=== PATIENT | female | born 1985 | race Caucasian/White ===

== ENCOUNTER 2019-06-08 16:59 | Emergency (ER) | payer OTHER ==
[2019-06-08 17:09] VITALS: RESP 18
--- NOTE | 2019-06-08 19:23 | ED ---
Fall HPI - General Source: patient, EMS Mode of arrival: EMS <Nazanin Orantes - Last Filed: 06/08/19 20:11> <Ryann Segovia - Last Filed: 06/11/19 02:56> - General Chief Complaint: Fall Stated Complaint: Headache, Fall, Nausea Time Seen by Provider: 06/08/19 17:21 - History of Present Illness Initial Comments: Patient is a 33-year-old female presenting to the emergency Department with complaints of a headache and neck pain after falling early this morning. Patient states she was returning home from work around midnight and was going up her stairs when she stopped to tell her friend sonido and she fell back down her stairs. Patient is unsure how many stairs she fell down. Patient is also unaware if she lost consciousness. Patient states she does remember getting up from the floor getting something to eat and then laying down. Patient states she woke up this morning around 8:30 feeling okay. Patient then went to work an d started feeling nauseous, vomiting and feeling dizzy. She said the headache was also worsening, so she decided to be seen. Patient denies any fever, chills, blurry vision at this time. Patient denies any abdominal pain. Patient denies any other injuries him her fall. She describes her headache as all over and rates it currently as 7/10. Patient denies taking any medications. No pertinent past medical history. Arrival to ER, vital signs are stable, afebrile. (Nazanin Orantes) - Related Data Home Medications Medication Instructions Recorded Confirmed No Known Home Medications 06/08/19 06/08/19 Allergies Allergy/AdvReac Type Severity Reaction Status Date / Time codeine AdvReac Mild Abdominal Verified 06/08/19 17:22 Pain amoxicillin AdvReac DOES NOT Verified 06/08/19 17:22 WORK Review of Systems ROS Other: All systems not noted in ROS Statement are negative. <Nazanin Orantes - Last Filed: 06/08/19 20:11> ROS Other: All systems not noted in ROS Statement are negative. <Ryann Segovia - Last Filed: 06/11/19 02:56> ROS Statement: Those systems with pertinent positive or pertinent negative responses have been documented in the HPI. Past Medical History Past Medical History: Asthma Additional Past Medical History / Comment(s): heart murmur as a child History of Any Multi-Drug Resistant Organisms: None Reported Past Surgical History: Section, Cholecystectomy Additional Past Surgical History / Comment(s): clamp on liver due to "liver bleed during gall bladder surgery" Past Anesthesia/Blood Transfusion Reactions: Previous Problems w/ Anesthesia Additional Past Anesthesia/Blood Transfusion Reaction / Comment(s): "freaked out when coming out and jumped off stretcher" Past Psychological History: Anxiety, Depression Smoking Status: Current every day smoker Past Alcohol Use History: None Reported Past Drug Use History: None Reported - Past Family History Father Family Medical History: No Reported History <Nazanin Orantes - Last Filed: 06/08/19 20:11> General Exam Limitations: no limitations <Nazanin Orantes - Last Filed: 06/08/19 20:11> - General Exam Comments Initial Comments: GENERAL: Well-appearing, well-nourished and in no acute distress. Patient arrived via EMS, currently in c-collar. HEAD: Atraumatic, normocephalic. EYES: Pupils equal round and reactive to light, extraocular movements intact, sclera anicteric, conjunctiva are normal. ENT: TMs normal, nares patent, oropharynx clear without exudates. Moist mucous membranes. Small bruise on the right side of the chin. NECK: After c-collar was cleared, Normal range of motion- with soreness at end range, supple without lymphadenopathy or JVD. LUNGS: Breath sounds clear to auscultation bilaterally and equal. No wheezes rales or rhonchi. HEART: Regular rate and rhythm without murmurs, rubs or gallops. ABDOMEN: Soft, nontender, normoactive bowel sounds. No guarding, no rebound. No masses appreciated. : Deferred EXTREMITIES: Normal range of motion, no pitting or edema. No clubbing or cyanosis. NEUROLOGICAL: Cranial nerves II through XII grossly intact. Normal speech, normal gait. PSYCH: Normal mood, normal affect. SKIN: Warm, Dry, normal turgor, no rashes or lesions noted. (Nazanin Orantes) Course Vital Signs 06/08/19 06/08/19 06/08/19 17:04 18:33 19:54 Temperature 98.5 F 98 F Pulse Rate 86 74 80 Respiratory 18 18 18 Rate Blood Pressure 144/99 135/92 125/84 O2 Sat by Pulse 100 99 100 Oximetry Medical Decision Making <Paradise Orantesderick Sheriff - Last Filed: 06/08/19 20:11> <Ryann Segovia - Last Filed: 06/11/19 02:56> - Medical Decision Making Patient is a 33-year-old female presenting via EMS after falling down some stairs last night. Patient states she is unaware of LOC. Patient was working today and started developing nausea, headache, dizziness and neck pain. Patient presented with a c-collar on. Parents ER vital signs are stable. CT of the C- spine reveals no acute fractures/dislocations. There is no acute intercranial hemorrhage of the brain. Discussed with patient that her symptoms are likely related to a concussion secondary to the fall. Discussed that these symptoms could last up to 1-2 weeks. Use Tylenol and/or Motrin for pain relief. Work note was given. Patient will follow up with PCP if symptoms persist longer than 1-2 weeks. Strict return parameters were discussed with the patient she verbalized understanding. Patient stable for discharge at this time. Case discussed with Dr. Segovia. (Nazanin Orantes) I was available for consultation in the emergency department. The history and physical exam were done by the midlevel provider. I was consulted for this patient's care. I reviewed the case midlevel provider and based on their presentation of the patient, I agree with the assessment, medical decision making and plan of care as documented. Chart was dictated using [employer] software. Attempts were made to correct any dictation errors however some typographical errors may persist. (Ryann Segovia) Disposition Is patient prescribed a controlled substance at d/c from ED?: No <Nazanin Orantes - Last Filed: 06/08/19 20:11> <Ryann Segovia - Last Filed: 06/11/19 02:56> Clinical Impression: Fall, Concussion Disposition: HOME SELF-CARE Condition: Stable Instructions (If sedation given, give patient instructions): Concussion (ED) Additional Instructions: Please return to the Emergency Department if symptoms worsen or any other concerns. Follow-up with PCP if symptoms persist over 1 week. Referrals: None,Stated [Primary Care Provider] - 1-2 days Franky Tinoco MD [REFERRING] - 1-2 days
[2019-06-08 19:55] VITALS: BP 125/84; PULSE 80; TEMP 98
[2019-06-08] MEDS ORDERED: IBUPROFEN 600 MG TAB PO STA (19:59)
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
== END 2019-06-08 20:16 | disposition home or self-care (01) ==
LOC: EC 16:59
DX: S06.0X9A Concussion with loss of consciousness of unspecified duration, initial encounter (principal); S00.83XA Contusion of other part of head, initial encounter; M54.2 Cervicalgia; F17.200 Nicotine dependence, unspecified, uncomplicated; Z88.0 Allergy status to penicillin; Z88.5 Allergy status to narcotic agent; W10.9XXA Fall (on) (from) unspecified stairs and steps, initial encounter; Y93.89 Activity, other specified
CPT/HCPCS: 70450; 72125; 99284

== ENCOUNTER 2019-10-14 17:13 | Emergency (ER) | payer OTHER ==
[2019-10-14 18:41] LABS: Appearance,Urine Clear (Clear); Bacteria,Urine Rare /hpf; Bilirubin,Urine Negative (Negative); Blood,Urine Moderate (Negative); Color,Urine Light Yellow; Glucose,Urine (UA) Negative (Negative); Ketones,Urine Negative (Negative); Leukocyte Esterase,Urine Negative (Negative); Mucus,Urine Rare /hpf; Nitrite,Urine Negative (Negative); Protein,Urine Negative (Negative); RBC,Urine 2 /hpf (0-5); Specific Gravity,Urine 1.006 (1.001-1.035); Squamous Epithelial Cell,Urine 2 /hpf (0-4); Urobilinogen,Urine <2.0 mg/dL (<2.0); WBC,Urine <1 /hpf (0-5)
[2019-10-14] MEDS ORDERED: diphenhydrAMINE 25 MG CAP PO STA (18:47)
[2019-10-14] MEDS ORDERED: DEXAMETHASONE 4 MG TAB PO STA (18:47)
[2019-10-14] MEDS ORDERED: Acetaminophen-Codeine 300-30mg TAB PO STA (18:47)
[2019-10-14] MEDS ORDERED: KETOROLAC 60 MG/2 ML VIAL IM STA (18:47)
[2019-10-14] MEDS ORDERED: PROCHLORPERAZINE 5 MG TAB PO STA (18:47)
[2019-10-14] MEDS ORDERED: ACETAMINOPHEN TAB 325 MG TAB PO STA (18:47)
--- NOTE | 2019-10-14 18:49 | ED ---
Back Pain HPI - General Chief Complaint: Back Pain/Injury Stated Complaint: back pain, headache Time Seen by Provider: 10/14/19 18:10 Source: patient, RN notes reviewed, old records reviewed Limitations: no limitations - History of Present Illness Initial Comments: Is a 33-year-old female here for evaluation of multiple complaints neck pain and back pain headache. Sensation imbalance of frustrated infection as well as urinary tract infections history of antibiotic. History of subsidence of substance abuse and depression does have pain for depression with denying significant depression currently denying drug or alcohol abuse denying suicidal thoughts. He is taking Motrin at home which does help with her pain. Denying any trauma to both her head or back. No loss of bowel or bladder no neurological complaints. Patient states she doesn't here for some relief from symptoms MD Complaint: back pain -: days(s) Similar Symptoms Previously: Yes Place: home Radiation: buttocks, left leg, right leg Severity: mild Severity scale (1-10): 3 Quality: sharp, aching Consistency: intermittent Improves With: none Worsens With: movement, walking Associated Symptoms: denies other symptoms - Related Data Previous Rx's Medication Instructions Recorded Cetirizine HCl/Pseudoephedrine 1 each PO BID #20 tab.er.12h 10/14/19 [Zyrtec-D Tablet] Clarithromycin [Biaxin] 500 mg PO Q12HR #20 tablet 10/14/19 Allergies Allergy/AdvReac Type Severity Reaction Status Date / Time codeine AdvReac Mild Abdominal Verified 06/08/19 17:22 Pain amoxicillin AdvReac DOES NOT Verified 06/08/19 17:22 WORK Review of Systems ROS Statement: Those systems with pertinent positive or pertinent negative responses have been documented in the HPI. ROS Other: All systems not noted in ROS Statement are negative. Past Medical History Past Medical History: Asthma Additional Past Medical History / Comment(s): heart murmur as a child History of Any Multi-Drug Resistant Organisms: None Reported Past Surgical History: Section, Cholecystectomy Additional Past Surgical History / Comment(s): clamp on liver due to "liver bleed during gall bladder surgery" Past Anesthesia/Blood Transfusion Reactions: Previous Problems w/ Anesthesia Additional Past Anesthesia/Blood Transfusion Reaction / Comment(s): "freaked out when coming out and jumped off stretcher" Past Psychological History: Anxiety, Depression Smoking Status: Current every day smoker Past Alcohol Use History: None Reported Past Drug Use History: None Reported - Past Family History Father Family Medical History: No Reported History General Exam Limitations: no limitations General appearance: alert, in no apparent distress Head exam: Present: atraumatic, normocephalic, normal inspection Eye exam: Present: normal appearance, PERRL, EOMI. Absent: scleral icterus, conjunctival injection, periorbital swelling ENT exam: Present: normal exam, mucous membranes moist Neck exam: Present: normal inspection. Absent: tenderness, meningismus, lymphadenopathy Respiratory exam: Present: normal lung sounds bilaterally. Absent: respiratory distress, wheezes, rales, rhonchi, stridor Cardiovascular Exam: Present: regular rate, normal rhythm, normal heart sounds. Absent: systolic murmur, diastolic murmur, rubs, gallop, clicks GI/Abdominal exam: Present: soft, normal bowel sounds. Absent: distended, tenderness, guarding, rebound, rigid Extremities exam: Present: normal inspection, full ROM, normal capillary refill. Absent: tenderness, pedal edema, joint swelling, calf tenderness Back exam: Present: normal inspection Neurological exam: Present: alert, oriented X3, CN II-XII intact Psychiatric exam: Present: normal affect, normal mood Skin exam: Present: warm, dry, intact, normal color. Absent: rash Course Vital Signs 10/14/19 10/14/19 17:40 19:46 Temperature 98.3 F 98 F Pulse Rate 75 77 Respiratory 16 18 Rate Blood Pressure 136/89 133/73 O2 Sat by Pulse 100 97 Oximetry Medical Decision Making - Medical Decision Making 32-year-old female here for evaluation of headache and back pain. Urine is negative for acute disease. Patient symptoms are managed here in the ER patient's able to be discharged home with follow-up with primary care this week - Lab Data Lab Results 10/14/19 10/14/19 10/14/19 Range/Units 18:30 18:30 19:02 Urine Color Light Yellow Urine Appearance Clear (Clear) Urine pH 6.0 (5.0-8.0) Ur Specific [place] 1.006 (1.001-1.035) Urine Protein Negative (Negative) Urine Glucose (UA) Negative (Negative) Urine Ketones Negative (Negative) Urine Blood Moderate H (Negative) Urine Nitrite Negative (Negative) Urine Bilirubin Negative (Negative) Urine Urobilinogen <2.0 (<2.0) mg/dL Ur Leukocyte Esterase Negative (Negative) Urine RBC 2 (0-5) /hpf Urine WBC <1 (0-5) /hpf Ur Squamous Epith Cells 2 (0-4) /hpf Urine Bacteria Rare H (None) /hpf Urine Mucus Rare H (None) /hpf Urine HCG, Qual Not Detected (Not Detectd) Influenza Type A RNA Not Detected (Not Detectd) Influenza Type B (PCR) Not Detected (Not Detectd) Disposition Clinical Impression: Migraine, Viral syndrome Disposition: HOME SELF-CARE Condition: Good Instructions (If sedation given, give patient instructions): Migraine Headache (ED), Acute Low Back Pain (ED) Prescriptions: Clarithromycin [Biaxin] 500 mg PO Q12HR #20 tablet Cetirizine HCl/Pseudoephedrine [Zyrtec-D Tablet] 1 each PO BID #20 tab.er.12h Is patient prescribed a controlled substance at d/c from ED?: No Referrals: Jeffery Godfrey Jr, [Primary Care Provider] - 1-2 days
[2019-10-14 19:47] VITALS: BP 133/73; PULSE 77; RESP 18; TEMP 98
== END 2019-10-14 19:47 | disposition home or self-care (01) ==
LOC: EC 17:13
DX: B34.9 Viral infection, unspecified (principal); G43.909 Migraine, unspecified, not intractable, without status migrainosus; F17.200 Nicotine dependence, unspecified, uncomplicated; Z88.0 Allergy status to penicillin; Z88.5 Allergy status to narcotic agent
CPT/HCPCS: 81001; 81025; 87502; 99284; 96372; S0183; J8540; J1885

== ENCOUNTER 2019-11-02 18:14 | Emergency (ER) | payer OTHER ==
[2019-11-02 18:25] VITALS: RESP 18; TEMP 99.1
[2019-11-02] MEDS ORDERED: KETOROLAC 30 MG/ML 1 ML VIAL IM STA (18:33)
--- NOTE | 2019-11-02 19:11 | XR ---
EXAMINATION TYPE: XR Hip RT and AP Pelvis DATE OF EXAM: 11/02/2019 COMPARISON: NONE HISTORY: Pain TECHNIQUE: 3 views FINDINGS: Pelvic ring is intact. Proximal right femur and hip joint are intact. Sacroiliac joints mickey ear normal. There is no sign of hip dysplasia. IMPRESSION: Normal pelvis and right hip exam.
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
[2019-11-02 19:50] VITALS: BP 138/72; PULSE 82
== END 2019-11-02 19:50 | disposition home or self-care (01) ==
LOC: EC 18:14
DX: M25.551 Pain in right hip (principal); F17.200 Nicotine dependence, unspecified, uncomplicated; Z88.0 Allergy status to penicillin; Z88.5 Allergy status to narcotic agent
CPT/HCPCS: 73502; 99283; 96372; J1885

== ENCOUNTER 2019-11-25 16:49 | Emergency (ER) | payer OTHER ==
[2019-11-25 16:59] VITALS: RESP 19; TEMP 99.4
[2019-11-25] MEDS ORDERED: SODIUM CHLORIDE 0.9% 1,000 ML IV STA (17:26)
--- NOTE | 2019-11-25 17:40 | ED ---
General Adult HPI - General Chief complaint: Chest Pain Stated complaint: chest pain Time Seen by Provider: 11/25/19 17:03 Source: EMS Mode of arrival: EMS Limitations: no limitations - History of Present Illness Initial comments: 34-year-old female patient presents to the emergency department today for evaluation of chest pain. Patient states he was having sharp stabbing pain to the mid left chest at the sternal border. Patient states this lasted for about 20 minutes. Patient states the pain radiated straight through to her back. States that she did feel short of breath, dizzy, and nauseous with this. Patient states the pain is mostly resolved however she can still feel it when she takes a deep breath. She states pain started while she was at work. 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 Denies any strenuous work. Patient denies any significant past medical history however states that she is a previous IV drug user. Patient states she's been clean for 67 days. She states that she has been having hot and cold chills. States she has been developing small abscesses over her body. Patient denies any recent rash, abdominal pain, vomiting, diarrhea, constipation, back pain, numbness, tingling, hematuria, dysuria, urinary urgency, urinary frequency, headache, visual changes, or any other complaints. - Related Data Previous Rx's Medication Instructions Recorded Cetirizine HCl/Pseudoephedrine 1 each PO BID #20 tab.er.12h 10/14/19 [Zyrtec-D Tablet] Clarithromycin [Biaxin] 500 mg PO Q12HR #20 tablet 10/14/19 Allergies Allergy/AdvReac Type Severity Reaction Status Date / Time codeine AdvReac Mild Abdominal Verified 06/08/19 17:22 Pain amoxicillin AdvReac DOES NOT Verified 06/08/19 17:22 WORK Review of Systems ROS Statement: Those systems with pertinent positive or pertinent negative responses have been documented in the HPI. ROS Other: All systems not noted in ROS Statement are negative. Past Medical History Past Medical History: Asthma Additional Past Medical History / Comment(s): heart murmur as a child History of Any Multi-Drug Resistant Organisms: None Reported Past Surgical History: Section, Cholecystectomy Additional Past Surgical History / Comment(s): clamp on liver due to "liver bleed during gall bladder surgery" Past Anesthesia/Blood Transfusion Reactions: Previous Problems w/ Anesthesia Additional Past Anesthesia/Blood Transfusion Reaction / Comment(s): "freaked out when coming out and jumped off stretcher" Past Psychological History: Anxiety, Depression Smoking Status: Current every day smoker Past Alcohol Use History: None Reported Past Drug Use History: None Reported - Past Family History Father Family Medical History: No Reported History General Exam Limitations: no limitations General appearance: alert, in no apparent distress, other (This is a well- developed, well-nourished adult female patient in no acute distress. Vital signs upon presentation are temperature 99.4F, pulse 64, respirations 19, blood pressure 134/84, pulse ox 100% on room air.) Eye exam: Present: normal appearance, PERRL, EOMI. Absent: scleral icterus, conjunctival injection, periorbital swelling ENT exam: Present: normal exam, normal oropharynx, mucous membranes moist Respiratory exam: Present: normal lung sounds bilaterally. Absent: respiratory distress, wheezes, rales, rhonchi, stridor Cardiovascular Exam: Present: regular rate, normal rhythm, normal heart sounds. Absent: systolic murmur, diastolic murmur, rubs, gallop, clicks GI/Abdominal exam: Present: soft, normal bowel sounds. Absent: distended, tenderness, guarding, rebound, rigid Neurological exam: Present: alert, oriented X3, CN II-XII intact Psychiatric exam: Present: normal affect, normal mood Skin exam: Present: warm, dry, intact, normal color. Absent: rash Course Vital Signs 11/25/19 11/25/19 16:52 18:57 Temperature 99.4 F Pulse Rate 64 58 L Respiratory 19 19 Rate Blood Pressure 134/84 127/82 O2 Sat by Pulse 100 100 Oximetry Medical Decision Making - Medical Decision Making 34-year-old female patient with past medical history significant for IV drug use presents to the emergency department today for evaluation of the 20 minute episode of sharp substernal chest pain radiating through to her back. Physical examination reveals clear equal lung sounds. Heart sounds are normal. Abdomen soft and nontender. Labs reviewed and are unremarkable. ESR and CRP are negative. White blood cell count is just mildly elevated. Chest x-ray shows no acute cardiopulmonary process. EKG showed normal sinus rhythm. Patient symptoms did resolve upon arrival. I did discuss findings and results with the patient. We did discuss chest wall pain and pleuritis as a possible cause for her symptoms. To be discharged pop with her primary care physician for recheck in 1-2 days. Return parameters were discussed in detail. She verbalizes understanding and agrees this plan. - Lab Data Result diagrams: 11/25/19 17:10 11/25/19 17:10 Lab Results 11/25/19 11/25/19 11/25/19 Range/Units 17:10 17:10 17:10 WBC 10.8 H (3.8-10.6) k/uL RBC 4.68 (3.80-5.40) m/uL Hgb 13.1 (11.4-16.0) gm/dL Hct 41.6 (34.0-46.0) % MCV 88.8 (80.0-100.0) fL MCH 28.0 (25.0-35.0) pg MCHC 31.5 (31.0-37.0) g/dL RDW 14.9 (11.5-15.5) % Plt Count 345 (150-450) k/uL Neutrophils % 59 % Lymphocytes % 30 % Monocytes % 6 % Eosinophils % 2 % Basophils % 1 % Neutrophils # 6.4 (1.3-7.7) k/uL Lymphocytes # 3.3 (1.0-4.8) k/uL Monocytes # 0.6 (0-1.0) k/uL Eosinophils # 0.2 (0-0.7) k/uL Basophils # 0.1 (0-0.2) k/uL ESR 7 (0-20) mm/hr PT 10.1 (9.0-12.0) sec INR 1.0 (<1.2) APTT 25.1 (22.0-30.0) sec D-Dimer 0.29 (<0.60) mg/L FEU Sodium 140 (137-145) mmol/L Potassium 4.0 (3.5-5.1) mmol/L Chloride 108 H (98-107) mmol/L Carbon Dioxide 23 (22-30) mmol/L Anion Gap 9 mmol/L BUN 5 L (7-17) mg/dL Creatinine 0.58 (0.52-1.04) mg/dL Est GFR (CKD-EPI)AfAm >90 (>60 ml/min/1.73 sqM) Est GFR (CKD-EPI)NonAf >90 (>60 ml/min/1.73 sqM) Glucose 67 L (74-99) mg/dL Calcium 9.8 (8.4-10.2) mg/dL Magnesium 1.8 (1.6-2.3) mg/dL Total Bilirubin 0.3 (0.2-1.3) mg/dL AST 30 (14-36) U/L ALT 18 (4-34) U/L Alkaline Phosphatase 78 (38-126) U/L Troponin I (0.000-0.034) ng/mL C-Reactive Protein <5.0 (<10.0) mg/L Total Protein 7.6 (6.3-8.2) g/dL Albumin 4.6 (3.5-5.0) g/dL Urine Color Urine Appearance (Clear) Urine pH (5.0-8.0) Ur Specific [place] (1.001-1.035) Urine Protein (Negative) Urine Glucose (UA) (Negative) Urine Ketones (Negative) Urine Blood (Negative) Urine Nitrite (Negative) Urine Bilirubin (Negative) Urine Urobilinogen (<2.0) mg/dL Ur Leukocyte Esterase (Negative) 11/25/19 11/25/19 Range/Units 17:10 17:10 WBC (3.8-10.6) k/uL RBC (3.80-5.40) m/uL Hgb (11.4-16.0) gm/dL Hct (34.0-46.0) % MCV (80.0-100.0) fL MCH (25.0-35.0) pg MCHC (31.0-37.0) g/dL RDW (11.5-15.5) % Plt Count (150-450) k/uL Neutrophils % % Lymphocytes % % Monocytes % % Eosinophils % % Basophils % % Neutrophils # (1.3-7.7) k/uL Lymphocytes # (1.0-4.8) k/uL Monocytes # (0-1.0) k/uL Eosinophils # (0-0.7) k/uL Basophils # (0-0.2) k/uL ESR (0-20) mm/hr PT (9.0-12.0) sec INR (<1.2) APTT (22.0-30.0) sec D-Dimer (<0.60) mg/L FEU Sodium (137-145) mmol/L Potassium (3.5-5.1) mmol/L Chloride (98-107) mmol/L Carbon Dioxide (22-30) mmol/L Anion Gap mmol/L BUN (7-17) mg/dL Creatinine (0.52-1.04) mg/dL Est GFR (CKD-EPI)AfAm (>60 ml/min/1.73 sqM) Est GFR (CKD-EPI)NonAf (>60 ml/min/1.73 sqM) Glucose (74-99) mg/dL Calcium (8.4-10.2) mg/dL Magnesium (1.6-2.3) mg/dL Total Bilirubin (0.2-1.3) mg/dL AST (14-36) U/L ALT (4-34) U/L Alkaline Phosphatase (38-126) U/L Troponin I <0.012 (0.000-0.034) ng/mL C-Reactive Protein (<10.0) mg/L Total Protein (6.3-8.2) g/dL Albumin (3.5-5.0) g/dL Urine Color Yellow Urine Appearance Clear (Clear) Urine pH 6.0 (5.0-8.0) Ur Specific [place] 1.005 (1.001-1.035) Urine Protein Negative (Negative) Urine Glucose (UA) Negative (Negative) Urine Ketones Negative (Negative) Urine Blood Negative (Negative) Urine Nitrite Negative (Negative) Urine Bilirubin Negative (Negative) Urine Urobilinogen 0.2 (<2.0) mg/dL Ur Leukocyte Esterase Negative (Negative) - Radiology Data Radiology results: report reviewed, image reviewed Two-view x-ray of the chest is obtained. Report is reviewed in its entirety. Impression by Dr. Jimenez shows normal chest. There is clearing of the atelectasis at the right upper lobe compared to last exam. Disposition Clinical Impression: Chest wall pain Disposition: HOME SELF-CARE Condition: Good Instructions (If sedation given, give patient instructions): Chest Wall Pain (ED) Additional Instructions: Increase fluids. Rest. Take Tylenol Motrin for pain control. Follow-up to primary care physician for recheck in 1-2 days. Return to the emergency department immediately for any new, worsening, or concerning symptoms. Is patient prescribed a controlled substance at d/c from ED?: No Referrals: Jeffery Godfrey Jr, [Primary Care Provider] - 1-2 days Time of Disposition: 19:58
[2019-11-25 18:15] LABS: ALT 18 U/L (4-34); AST 30 U/L (14-36); African American GFR (CKD) >90 (>60 ml/min/1.73 sqM); Albumin 4.6 g/dL (3.5-5.0); Alkaline Phosphatase 78 U/L (38-126); Anion Gap 9 mmol/L; Blood Urea Nitrogen 5 mg/dL (7-17); C Reactive Protein <5.0 mg/L (<10.0); Calcium 9.8 mg/dL (8.4-10.2); Carbon Dioxide 23 mmol/L (22-30); Chloride 108 mmol/L (98-107); Glucose 67 mg/dL (74-99); Magnesium 1.8 mg/dL (1.6-2.3); Non-African American GFR(CKD) >90 (>60 ml/min/1.73 sqM); Sodium 140 mmol/L (137-145); Total Bilirubin 0.3 mg/dL (0.2-1.3); Total Protein 7.6 g/dL (6.3-8.2)
--- NOTE | 2019-11-25 18:17 | XR ---
EXAMINATION TYPE: XR chest 2V DATE OF EXAM: 11/25/2019 COMPARISON: 01/02/2016 HISTORY: Chest pain TECHNIQUE: FINDINGS: Heart and mediastinum are normal. Lungs are clear. Diaphragm is normal. Bony thorax appears normal. IMPRESSION: Normal chest. There is clearing of the atelectasis in the right upper lobe compared to [facility] exam.
[2019-11-25 18:30] LABS: Basophils # (A) 0.1 k/uL (0-0.2); Basophils % (A) 1 %; Eosinophils # (A) 0.2 k/uL (0-0.7); Eosinophils % (A) 2 %; HCT 41.6 % (34.0-46.0); HGB 13.1 gm/dL (11.4-16.0); Lymphocytes # (A) 3.3 k/uL (1.0-4.8); Lymphocytes % (A) 30 %; MCHC 31.5 g/dL (31.0-37.0); MCV 88.8 fL (80.0-100.0); Mean Platelet Volume 7.9; Monocytes # (A) 0.6 k/uL (0-1.0); Monocytes % (A) 6 %; Neutrophils # (A) 6.4 k/uL (1.3-7.7); Neutrophils % (A) 59 %; Platelet Count 345 k/uL (150-450); RBC 4.68 m/uL (3.80-5.40); RDW 14.9 % (11.5-15.5); WBC 10.8 k/uL (3.8-10.6)
[2019-11-25 18:35] LABS: Appearance,Urine Clear (Clear); Bilirubin,Urine Negative (Negative); Color,Urine Yellow; Glucose,Urine (UA) Negative (Negative); Ketones,Urine Negative (Negative); Protein,Urine Negative (Negative); Specific Gravity,Urine 1.005 (1.001-1.035)
[2019-11-25 18:36] LABS: Blood,Urine Negative (Negative); Leukocyte Esterase,Urine Negative (Negative); Nitrite,Urine Negative (Negative); Urobilinogen,Urine 0.2 mg/dL (<2.0)
[2019-11-25 18:40] LABS: D-Dimer 0.29 mg/L FEU (<0.60); Partial Thromboplastin Time 25.1 sec (22.0-30.0); Prothrombin Time 10.1 sec (9.0-12.0)
[2019-11-25 18:59] VITALS: BP 127/82; PULSE 58
[2019-11-25 19:40] LABS: Erythrocyte Sedimentation Rate 7 mm/hr (0-20)
== END 2019-11-25 20:26 | disposition home or self-care (01) ==
LOC: EC 16:49
DX: R07.89 Other chest pain (principal); R07.2 Precordial pain; D72.829 Elevated white blood cell count, unspecified; F17.200 Nicotine dependence, unspecified, uncomplicated; Z88.5 Allergy status to narcotic agent; Z88.0 Allergy status to penicillin; Z86.59 Personal history of other mental and behavioral disorders
CPT/HCPCS: 36415; 71046; 80053; 81003; 83735; 84484; 85025; 85379; 85610; 85652; 85730; 86140; 93005; 96360; 96361; 99285

== ENCOUNTER 2021-01-31 18:50 | Emergency (ER) | payer OTHER ==
[2021-01-31 18:57] VITALS: TEMP 98.2
--- NOTE | 2021-01-31 19:14 | ED ---
URI HPI - General Chief Complaint: Upper Respiratory Infection Stated Complaint: SOB/sore throat Time Seen by Provider: 01/31/21 19:00 Source: patient, RN notes reviewed Mode of arrival: ambulatory Limitations: no limitations - History of Present Illness Initial Comments: She is a 35-year-old female presents to emergency by complaining of upper respiratory tract symptoms for approximately 2 weeks. She notes that she's had a continuous cough that results in some chest tightness and pain. States that her boss recently got 2 weeks off due to Covid pneumonia. She notes that she's been try to avoid come in the hospital inferior of everything was going on during the pinnae. She states that she has had orthopnea which has proper supple to sleep at night. She stated the cough was dry and nonproductive constant throughout the day. She was well-appearing, well-hydrated while sitting in bed in exam interview. She did have a raspy voice due to irritated throat. She denied any headache nausea vomiting diarrhea constipation fever fatigue chills loss of sense of smell or taste. - Related Data Previous Rx's Medication Instructions Recorded Cetirizine HCl/Pseudoephedrine 1 each PO BID #20 tab.er.12h 10/14/19 [Zyrtec-D Tablet] Clarithromycin [Biaxin] 500 mg PO Q12HR #20 tablet 10/14/19 Azithromycin [Zithromax Z-pack (6 0 mg PO DIRECTED 5 Days #6 tab 01/31/21 tabs)] Allergies Allergy/AdvReac Type Severity Reaction Status Date / Time codeine AdvReac Mild Abdominal Verified 01/31/21 18:55 Pain amoxicillin AdvReac DOES NOT Verified 01/31/21 18:55 WORK Review of Systems ROS Statement: Those systems with pertinent positive or pertinent negative responses have been documented in the HPI. ROS Other: All systems not noted in ROS Statement are negative. Past Medical History Past Medical History: Asthma Additional Past Medical History / Comment(s): heart murmur as a child History of Any Multi-Drug Resistant Organisms: None Reported Past Surgical History: Section, Cholecystectomy Additional Past Surgical History / Comment(s): clamp on liver due to "liver bleed during gall bladder surgery" Past Anesthesia/Blood Transfusion Reactions: Previous Problems w/ Anesthesia Additional Past Anesthesia/Blood Transfusion Reaction / Comment(s): "freaked out when coming out and jumped off stretcher" Past Psychological History: Anxiety, Depression Smoking Status: Current every day smoker Past Alcohol Use History: None Reported Past Drug Use History: None Reported - Past Family History Father Family Medical History: No Reported History General Exam Limitations: no limitations General appearance: alert, in no apparent distress Head exam: Present: atraumatic, normocephalic, normal inspection Eye exam: Present: normal appearance, PERRL, EOMI. Absent: scleral icterus, conjunctival injection, periorbital swelling ENT exam: Present: normal exam, mucous membranes moist. Absent: normal oropharynx (Erythematous nonswollen) Neck exam: Present: normal inspection. Absent: tenderness, meningismus, lymphadenopathy Respiratory exam: Present: normal lung sounds bilaterally. Absent: respiratory distress, wheezes, rales, rhonchi, stridor Cardiovascular Exam: Present: regular rate, normal rhythm, normal heart sounds. Absent: systolic murmur, diastolic murmur, rubs, gallop, clicks GI/Abdominal exam: Present: soft, normal bowel sounds. Absent: distended, tenderness, guarding, rebound, rigid Extremities exam: Present: normal inspection, full ROM, normal capillary refill. Absent: tenderness, pedal edema, joint swelling, calf tenderness Neurological exam: Present: alert, oriented X3, CN II-XII intact Psychiatric exam: Present: normal affect, normal mood Skin exam: Present: warm, dry, intact, normal color. Absent: rash Course Vital Signs 01/31/21 01/31/21 18:53 19:43 Temperature 98.2 F Pulse Rate 87 81 Respiratory 16 18 Rate Blood Pressure 150/70 O2 Sat by Pulse 100 98 Oximetry Medical Decision Making - Medical Decision Making 35-year-old female with upper respiratory tract symptoms for 2 weeks. Labs, EKG, chest x-ray, Covid test ordered. Covid test negative Chest x-ray negative for any acute cardiopulmonary process. Case discussed with Dr. Mendez, patient can discharge home. - Lab Data Result diagrams: 01/31/21 19:22 01/31/21 19:22 Lab Results 01/31/21 01/31/21 01/31/21 Range/Units 19:22 19:22 19:22 WBC 15.0 H (3.8-10.6) k/uL RBC 4.66 (3.80-5.40) m/uL Hgb 13.0 (11.4-16.0) gm/dL Hct 40.2 (34.0-46.0) % MCV 86.3 (80.0-100.0) fL MCH 28.0 (25.0-35.0) pg MCHC 32.5 (31.0-37.0) g/dL RDW 14.2 (11.5-15.5) % Plt Count 377 (150-450) k/uL MPV 7.2 Neutrophils % 62 % Lymphocytes % 27 % Monocytes % 6 % Eosinophils % 3 % Basophils % 1 % Neutrophils # 9.3 H (1.3-7.7) k/uL Lymphocytes # 4.0 (1.0-4.8) k/uL Monocytes # 0.9 (0-1.0) k/uL Eosinophils # 0.5 (0-0.7) k/uL Basophils # 0.1 (0-0.2) k/uL Sodium 137 (137-145) mmol/L Potassium 4.5 (3.5-5.1) mmol/L Chloride 107 (98-107) mmol/L Carbon Dioxide 21 L (22-30) mmol/L Anion Gap 9 mmol/L BUN 11 (7-17) mg/dL Creatinine 0.55 (0.52-1.04) mg/dL Est GFR (CKD-EPI)AfAm >90 (>60 ml/min/1.73 sqM) Est GFR (CKD-EPI)NonAf >90 (>60 ml/min/1.73 sqM) Glucose 81 (74-99) mg/dL Calcium 9.4 (8.4-10.2) mg/dL Urine Color Light Yellow Urine Appearance Clear (Clear) Urine pH 5.5 (5.0-8.0) Ur Specific [place] 1.006 (1.001-1.035) Urine Protein Negative (Negative) Urine Glucose (UA) Negative (Negative) Urine Ketones Negative (Negative) Urine Blood Negative (Negative) Urine Nitrite Negative (Negative) Urine Bilirubin Negative (Negative) Urine Urobilinogen <2.0 (<2.0) mg/dL Ur Leukocyte Esterase Negative (Negative) Coronavirus (PCR) (Not Detectd) 01/31/21 Range/Units 19:22 WBC (3.8-10.6) k/uL RBC (3.80-5.40) m/uL Hgb (11.4-16.0) gm/dL Hct (34.0-46.0) % MCV (80.0-100.0) fL MCH (25.0-35.0) pg MCHC (31.0-37.0) g/dL RDW (11.5-15.5) % Plt Count (150-450) k/uL MPV Neutrophils % % Lymphocytes % % Monocytes % % Eosinophils % % Basophils % % Neutrophils # (1.3-7.7) k/uL Lymphocytes # (1.0-4.8) k/uL Monocytes # (0-1.0) k/uL Eosinophils # (0-0.7) k/uL Basophils # (0-0.2) k/uL Sodium (137-145) mmol/L Potassium (3.5-5.1) mmol/L Chloride (98-107) mmol/L Carbon Dioxide (22-30) mmol/L Anion Gap mmol/L BUN (7-17) mg/dL Creatinine (0.52-1.04) mg/dL Est GFR (CKD-EPI)AfAm (>60 ml/min/1.73 sqM) Est GFR (CKD-EPI)NonAf (>60 ml/min/1.73 sqM) Glucose (74-99) mg/dL Calcium (8.4-10.2) mg/dL Urine Color Urine Appearance (Clear) Urine pH (5.0-8.0) Ur Specific [place] (1.001-1.035) Urine Protein (Negative) Urine Glucose (UA) (Negative) Urine Ketones (Negative) Urine Blood (Negative) Urine Nitrite (Negative) Urine Bilirubin (Negative) Urine Urobilinogen (<2.0) mg/dL Ur Leukocyte Esterase (Negative) Coronavirus (PCR) Not Detected (Not Detectd) - EKG Data -: EKG Interpreted by Me EKG shows normal: sinus rhythm Rate: normal EKG Comments: Ventricular rate 86 bpm, IA interval 142 ms, QRS duration 80 ms, QT/QTC 346/414 ms, PRT axes of the 8/53/6. Line normal sinus rhythm, normal ECG. - Radiology Data Radiology results: report reviewed, image reviewed Chest x-ray: Normal chest. No change. Disposition Clinical Impression: Upper respiratory tract infection Disposition: HOME SELF-CARE Condition: Stable Instructions (If sedation given, give patient instructions): Upper Respiratory Infection (ED) Additional Instructions: Please return to the Emergency Department if symptoms worsen or any other concerns. Take Motrin for inflammation. Take [id number] cough syrup for cough. Take Z-Giuseppe as directed on the package. Is patient prescribed a controlled substance at d/c from ED?: No Referrals: Jeffery Godfrey Jr, [Primary Care Provider] - 1-2 days Time of Disposition: 20:18
[2021-01-31 19:38] LABS: Appearance,Urine Clear (Clear); Basophils # (A) 0.1 k/uL (0-0.2); Basophils % (A) 1 %; Bilirubin,Urine Negative (Negative); Blood,Urine Negative (Negative); Color,Urine Light Yellow; Eosinophils # (A) 0.5 k/uL (0-0.7); Eosinophils % (A) 3 %; Glucose,Urine (UA) Negative (Negative); HCT 40.2 % (34.0-46.0); Ketones,Urine Negative (Negative); Leukocyte Esterase,Urine Negative (Negative); Lymphocytes % (A) 27 %; MCHC 32.5 g/dL (31.0-37.0); MCV 86.3 fL (80.0-100.0); Mean Platelet Volume 7.2; Monocytes # (A) 0.9 k/uL (0-1.0); Monocytes % (A) 6 %; Neutrophils # (A) 9.3 k/uL (1.3-7.7); Neutrophils % (A) 62 %; Nitrite,Urine Negative (Negative); PH, Urine 5.5 (5.0-8.0); Platelet Count 377 k/uL (150-450); Protein,Urine Negative (Negative); RBC 4.66 m/uL (3.80-5.40); RDW 14.2 % (11.5-15.5); Specific Gravity,Urine 1.006 (1.001-1.035); Urobilinogen,Urine <2.0 mg/dL (<2.0)
--- NOTE | 2021-01-31 19:45 | XR ---
EXAMINATION TYPE: XR chest 1V portable DATE OF EXAM: 01/31/2021 COMPARISON: 11/25/2019 HISTORY: Chest pain TECHNIQUE: FINDINGS: Heart and mediastinum are normal. Lungs are clear. Diaphragm is normal. Bony thorax appears intact. IMPRESSION: Normal chest. No change.
[2021-01-31 19:49] VITALS: RESP 18
[2021-01-31 19:57] LABS: African American GFR (CKD) >90 (>60 ml/min/1.73 sqM); Anion Gap 9 mmol/L; Blood Urea Nitrogen 11 mg/dL (7-17); Carbon Dioxide 21 mmol/L (22-30); Chloride 107 mmol/L (98-107); Glucose 81 mg/dL (74-99); Sodium 137 mmol/L (137-145)
[2021-01-31 19:58] LABS: Calcium 9.4 mg/dL (8.4-10.2); Non-African American GFR(CKD) >90 (>60 ml/min/1.73 sqM)
[2021-01-31 19:59] LABS: Potassium 4.5 mmol/L (3.5-5.1)
[2021-01-31 20:34] VITALS: BP 136/74; PULSE 77
== END 2021-01-31 20:34 | disposition home or self-care (01) ==
LOC: EC 18:50
DX: J06.9 Acute upper respiratory infection, unspecified (principal); J45.909 Unspecified asthma, uncomplicated; F17.200 Nicotine dependence, unspecified, uncomplicated; Z88.0 Allergy status to penicillin; Z88.5 Allergy status to narcotic agent
CPT/HCPCS: 36415; 71045; 80048; 81003; 85025; 87635; 93005; 99285

== ENCOUNTER 2021-05-23 15:12 | Emergency (ER) | payer OTHER ==
[2021-05-23] MEDS ORDERED: predniSONE 50 MG TAB PO STA (15:37)
[2021-05-23] MEDS ORDERED: ALBUTEROL HFA INHALER INHALATION STA (15:38)
--- NOTE | 2021-05-23 15:43 | ED ---
General Adult HPI - General Chief complaint: Upper Respiratory Infection Stated complaint: SMILEY,Cough,headache Time Seen by Provider: 05/23/21 15:30 Source: patient, RN notes reviewed, old records reviewed Mode of arrival: ambulatory Limitations: no limitations - History of Present Illness Initial comments: Patient is a 35-year-old female with past medical history remarkable for asthma who presents emergency Department complaining of a two-day history of worsening difficulty breathing. She describes it as a wheezing sensation with an intermittently productive cough of yellow mucus. She states that she does have a history of asthma but has been without an inhaler at home. She attempted use a family member's breathing inhaler without much improvement. She is uncertain what typically causes asthma flares, as she typically rarely uses her inhaler. 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 She denies receiving vaccination. She denies any chest pain, abdominal pain, nausea, vomiting. Denies any headaches, fevers, chills, cough. Denies any sore throat. Does endorse mild rhinorrhea. Denies any ear fullness or pain. Denies any urinary or vaginal complaints at this time. She otherwise has no acute complaints. - Related Data Previous Rx's Medication Instructions Recorded Albuterol Inhaler [Ventolin Hfa 2 puff INHALATION RT-TID #1 inhaler 05/23/21 Inhaler] Azithromycin [Zithromax] 250 mg PO DAILY 4 Days #4 tab 05/23/21 predniSONE [Deltasone] 40 mg PO DAILY 5 Days #10 tab 05/23/21 Allergies Allergy/AdvReac Type Severity Reaction Status Date / Time codeine AdvReac Mild Abdominal Verified 05/23/21 16:19 Pain amoxicillin AdvReac DOES NOT Verified 05/23/21 16:19 WORK Review of Systems ROS Statement: Those systems with pertinent positive or pertinent negative responses have been documented in the HPI. Review of Systems: CONST: Denies fever EYES: Denies blurry vision ENT: Endorses nasal congestion C/V: Denies Chest pain RESP: Endorses shortness of breath GI: Denies abdominal pain : Denies dysuria SKIN: Denies rash. MSK: Denies joint pain. NEURO: Denies headache ROS Other: All systems not noted in ROS Statement are negative. Past Medical History Past Medical History: Asthma Additional Past Medical History / Comment(s): heart murmur as a child History of Any Multi-Drug Resistant Organisms: None Reported Past Surgical History: Section, Cholecystectomy Additional Past Surgical History / Comment(s): clamp on liver due to "liver bleed during gall bladder surgery" Past Anesthesia/Blood Transfusion Reactions: Previous Problems w/ Anesthesia Additional Past Anesthesia/Blood Transfusion Reaction / Comment(s): "freaked out when coming out and jumped off stretcher" Past Psychological History: Anxiety, Depression Smoking Status: Current every day smoker Past Alcohol Use History: None Reported Past Drug Use History: None Reported - Past Family History Father Family Medical History: No Reported History General Exam - General Exam Comments Initial Comments: General: Appears in no acute distress. HEAD: Normal with no signs of head trauma. EYES: EOMI ENT: Hearing grossly intact, normal oropharynx. Posterior oropharynx shows no signs of erythema or exudates. RESPIRATORY: Patient has bilateral end expiratory wheezes in all lung ferrell. No obvious rhonchi auscultated. Moving air well in both lung ferrell. Patient has not tachypnea. There are no retractions. C/V: Regular rate and rhythm. S1 and S2 auscultated, no edema, peripheral pulses 2+ and intact throughout ABD: Abd is soft, nontender, nondistended EXT: No obvious deformity. SKIN: No rashes or lesions observed on exposed skin. NEURO: Alert and oriented 4. Limitations: no limitations Course Vital Signs 05/23/21 05/23/21 05/23/21 15:26 15:29 16:26 Temperature 98.9 F Pulse Rate 80 82 Respiratory 20 18 18 Rate Blood Pressure 131/85 O2 Sat by Pulse 99 Oximetry 05/23/21 16:33 Temperature Pulse Rate 80 Respiratory 18 Rate Blood Pressure O2 Sat by Pulse Oximetry Medical Decision Making - Medical Decision Making Based on the patient's presentation and physical exam, do believe she is likely experiencing an acute asthma exacerbation. Cannot rule out possible COVID-19 infection at this time or pneumonia due to the productive cough. She does have sick contacts. Therefore we will obtain a COVID-19 swab as well as 2 view chest x-ray. Patient be symptomatically treated with a DuoNeb breathing treatment as well as 60 mg of by mouth prednisone. She'll be reassessed following treatment. She was in agreement this plan. Continue his pulse ox and she will be placed on patient will she is here. Vital signs are stable and within normal limits on presentation. Patient's chest x-ray revealed a small left mid lobe pneumonia present. COVID- 19 swab is negative. Following breathing treatment, patient's wheezing has improved. She states that her breathing is improved as well. I informed her the results of her imaging as well as her COVID-19 swab. I explained that due to the community-acquired pneumonia, we'll place her on antibiotics and she'll receive the first dose of azithromycin here in the emergency apartment. She was in agreement this plan. She'll also receive steroids and albuterol inhaler for outpatient treatment of her asthma. She was also in agreement this plan. Patient was therefore discharged home in fair condition. I will provide the patient with a prescription for azithromycin 250 mg for 4 days, prednisone 40 mg for 5 days, albuterol inhaler. I instructed the patient to follow up with their PCP in the next 3 days. . I explained that the patient should return to the emergency department if they experience any worsening symptoms. Strict return precautions were discussed with the patient. The patient expressed understanding of these instructions. I answered all questions that the patient had. The patient was discharged home in fair condition with their prescriptions and follow up information. - Lab Data Lab Results 05/23/21 Range/Units 15:54 Coronavirus (PCR) Not Detected (Not Detectd) Disposition Clinical Impression: Asthma exacerbation, Community acquired pneumonia Disposition: HOME SELF-CARE Condition: Fair Instructions (If sedation given, give patient instructions): Asthma (ED), Pneumonia (ED) Prescriptions: predniSONE [Deltasone] 40 mg PO DAILY 5 Days #10 tab Albuterol Inhaler [Ventolin Hfa Inhaler] 2 puff INHALATION RT-TID #1 inhaler Azithromycin [Zithromax] 250 mg PO DAILY 4 Days #4 tab Is patient prescribed a controlled substance at d/c from ED?: No Referrals: Jeffery Godfrey Jr, [Primary Care Provider] - 1-2 days
[2021-05-23] MEDS: IPRATROPIUM-ALBUTEROL 3 ML NEB INHALATION STA ×2 (15:48→16:24)
[2021-05-23] MEDS ORDERED: IPRATROPIUM-ALBUTEROL 3 ML NEB INHALATION STA (16:23)
--- NOTE | 2021-05-23 16:23 | XR ---
EXAMINATION TYPE: XR chest 2V DATE OF EXAM: 05/23/2021 COMPARISON: 01/31/2021 HISTORY: Difficulty breathing TECHNIQUE: 2 views FINDINGS: There is some minimal infiltrate in the left midlung field. The other lung ferrell are fairl y clear. There are no hilar masses. Costophrenic angles are clear. Heart and mediastinum are normal. IMPRESSION: Minimal pneumonia in the left midlung. This appears new compared to old exam.
[2021-05-23] MEDS ORDERED: AZITHROMYCIN 500 MG TAB PO STA (16:53)
[2021-05-23 17:17] VITALS: BP 153/84; PULSE 98; RESP 16; TEMP 98.7
== END 2021-05-23 17:15 | disposition home or self-care (01) ==
LOC: EC 15:12
DX: J45.901 Unspecified asthma with (acute) exacerbation (principal); J18.9 Pneumonia, unspecified organism; F17.200 Nicotine dependence, unspecified, uncomplicated; Z88.0 Allergy status to penicillin; Z88.5 Allergy status to narcotic agent; Z20.822 Contact with and (suspected) exposure to COVID-19
CPT/HCPCS: 94640; 87635; 71046; 99285; J7512

== ENCOUNTER 2021-06-26 07:59 | Inpatient (IN) | payer OTHER ==
[2021-06-26] MEDS ORDERED: FAMOTIDINE 20 MG/2 ML VIAL IV STA (08:17)
--- NOTE | 2021-06-26 08:22 | ED ---
General Adult HPI <Ryann Segovia - Last Filed: 06/26/21 11:00> - General Source: EMS, RN notes reviewed Mode of arrival: EMS Limitations: no limitations <Jez Joyce - Last Filed: 06/26/21 11:02> - General Chief complaint: Chest Pain Stated complaint: chest pain Time Seen by Provider: 06/26/21 08:01 - History of Present Illness Initial comments: 35-year-old female with a past medical history of asthma, heart murmur presents to the emergency room for a chief complaint of chest pain. Patient reports that she had a burning chest pain before she went to bed last night. When she woke up today had persisted which made her anxious and short of breath. States she therefore called 911 and presented to the emergency room. However on presentation patient now reports the pain has stopped and she feels silly for coming in. Patient denies nausea or diaphoresis. Denies fevers or chills. Does state that she took a Suboxone last night for pain which did not seem to work.Patient has no other complaints at this time including shortness of breath, abdominal pain, nausea or vomiting, headache, or visual changes. (Jez Joyce) - Related Data Home Medications Medication Instructions Recorded Confirmed Albuterol Sulfate [Proair Hfa] 2 puff INHALATION RT-QID PRN 06/26/21 06/26/21 Allergies Allergy/AdvReac Type Severity Reaction Status Date / Time codeine AdvReac Mild Abdominal Verified 06/26/21 10:16 Pain amoxicillin AdvReac DOES NOT Verified 06/26/21 10:16 WORK Review of Systems ROS Other: All systems not noted in ROS Statement are negative. <Ryann Segovia - Last Filed: 06/26/21 11:00> ROS Other: All systems not noted in ROS Statement are negative. <Jez Joyce - Last Filed: 06/26/21 11:02> ROS Statement: Those systems with pertinent positive or pertinent negative responses have been documented in the HPI. Past Medical History Past Medical History: Asthma Additional Past Medical History / Comment(s): heart murmur as a child History of Any Multi-Drug Resistant Organisms: None Reported Past Surgical History: Section, Cholecystectomy Additional Past Surgical History / Comment(s): clamp on liver due to "liver bleed during gall bladder surgery" Past Anesthesia/Blood Transfusion Reactions: Previous Problems w/ Anesthesia Additional Past Anesthesia/Blood Transfusion Reaction / Comment(s): "freaked out when coming out and jumped off stretcher" Past Psychological History: Anxiety, Depression Smoking Status: Current every day smoker Past Alcohol Use History: None Reported Past Drug Use History: None Reported - Past Family History Father Family Medical History: No Reported History <Jez Joyce - Last Filed: 06/26/21 11:02> General Exam Limitations: no limitations General appearance: alert, in no apparent distress Head exam: Present: atraumatic Eye exam: Present: normal appearance, PERRL, EOMI. Absent: scleral icterus, conjunctival injection ENT exam: Present: normal exam, mucous membranes moist Neck exam: Present: normal inspection, full ROM. Absent: tenderness Respiratory exam: Present: normal lung sounds bilaterally. Absent: respiratory distress, wheezes Cardiovascular Exam: Present: regular rate, normal rhythm, normal heart sounds GI/Abdominal exam: Present: soft, normal bowel sounds. Absent: distended, tenderness Neurological exam: Present: alert <Jez Joyce - Last Filed: 06/26/21 11:02> Course <Ryann Segovia - Last Filed: 06/26/21 11:00> Vital Signs 06/26/21 06/26/21 06/26/21 08:00 09:24 10:27 Temperature 98 F 98 F Pulse Rate 81 90 92 Respiratory 18 18 18 Rate Blood Pressure 130/83 143/84 139/115 O2 Sat by Pulse 98 98 99 Oximetry - Reevaluation(s) Reevaluation #1: 06/26/21 10:[address] Blackwood - calling in cath team (Ryann Segovia) Reevaluation #2: EKG demonstrates STEMI changes. STEMI activated at this time 06/26/21 10:28 (Ryann Segovia) Medical Decision Making - Lab Data Result diagrams: 06/26/21 08:19 06/26/21 08:19 <Ryann Segovia - Last Filed: 06/26/21 11:00> - Lab Data Result diagrams: 06/26/21 08:19 06/26/21 08:19 <Jez Joyce - Last Filed: 06/26/21 11:02> - Medical Decision Making 35-year-old female presents for atypical chest pain. Describes it as a burning pain in the center of her chest and epigastric area. This started last night while watching TV but had resolved upon arrival. Patient was pain-free upon arrival. EKG was obtained which was unremarkable. There may be some depression in lead III and aVF. Cardiac workup was started. Troponin did come back elevated. At that time patient was still pain-free but was given aspirin. Dr. Johnson evaluated the patient. Repeat EKG was unchanged. Cardiology was consulted, recommended calling a laboratory monitor which was done, and CTA of the chest was ordered. CT which was reviewed and there is no obvious dissection. She started to have pain again after the CT and was given morphine and then Dilaudid. Nitro was initially held because pressure was borderline and there was concern for the depression in the inferior leads. Dr. Blackwood saw patient at bedside. Repeat EKG was done again when patient became diaphoretic and this did reveal an acute STEMI. Patient was started on nitro sublingual and then nitro drip @ 10. Dr. Blackwood at bedside. (Jez Joyce) - Lab Data Lab Results 06/26/21 06/26/21 06/26/21 Range/Units 08:19 08:19 08:19 WBC 10.2 (3.8-10.6) k/uL RBC 4.81 (3.80-5.40) m/uL Hgb 13.2 (11.4-16.0) gm/dL Hct 41.5 (34.0-46.0) % MCV 86.2 (80.0-100.0) fL MCH 27.5 (25.0-35.0) pg MCHC 31.9 (31.0-37.0) g/dL RDW 14.7 (11.5-15.5) % Plt Count 345 (150-450) k/uL MPV 8.2 Neutrophils % 60 % Lymphocytes % 30 % Monocytes % 5 % Eosinophils % 3 % Basophils % 1 % Neutrophils # 6.1 (1.3-7.7) k/uL Lymphocytes # 3.1 (1.0-4.8) k/uL Monocytes # 0.6 (0-1.0) k/uL Eosinophils # 0.3 (0-0.7) k/uL Basophils # 0.1 (0-0.2) k/uL PT 9.8 (9.0-12.0) sec INR 0.9 (<1.2) APTT 24.3 (22.0-30.0) sec D-Dimer 0.40 (<0.60) mg/L FEU Sodium 140 (137-145) mmol/L Potassium 3.8 (3.5-5.1) mmol/L Chloride 109 H (98-107) mmol/L Carbon Dioxide 23 (22-30) mmol/L Anion Gap 8 mmol/L BUN 6 L (7-17) mg/dL Creatinine 0.64 (0.52-1.04) mg/dL Est GFR (CKD-EPI)AfAm >90 (>60 ml/min/1.73 sqM) Est GFR (CKD-EPI)NonAf >90 (>60 ml/min/1.73 sqM) Glucose 103 H (74-99) mg/dL Calcium 9.8 (8.4-10.2) mg/dL Magnesium 1.7 (1.6-2.3) mg/dL Total Bilirubin 0.3 (0.2-1.3) mg/dL AST 40 H (14-36) U/L ALT 28 (4-34) U/L Alkaline Phosphatase 119 (38-126) U/L Troponin I (0.000-0.034) ng/mL Total Protein 6.8 (6.3-8.2) g/dL Albumin 3.9 (3.5-5.0) g/dL HCG, Qual 06/26/21 06/26/21 Range/Units 08:19 08:19 WBC (3.8-10.6) k/uL RBC (3.80-5.40) m/uL Hgb (11.4-16.0) gm/dL Hct (34.0-46.0) % MCV (80.0-100.0) fL MCH (25.0-35.0) pg MCHC (31.0-37.0) g/dL RDW (11.5-15.5) % Plt Count (150-450) k/uL MPV Neutrophils % % Lymphocytes % % Monocytes % % Eosinophils % % Basophils % % Neutrophils # (1.3-7.7) k/uL Lymphocytes # (1.0-4.8) k/uL Monocytes # (0-1.0) k/uL Eosinophils # (0-0.7) k/uL Basophils # (0-0.2) k/uL PT (9.0-12.0) sec INR (<1.2) APTT (22.0-30.0) sec D-Dimer (<0.60) mg/L FEU Sodium (137-145) mmol/L Potassium (3.5-5.1) mmol/L Chloride (98-107) mmol/L Carbon Dioxide (22-30) mmol/L Anion Gap mmol/L BUN (7-17) mg/dL Creatinine (0.52-1.04) mg/dL Est GFR (CKD-EPI)AfAm (>60 ml/min/1.73 sqM) Est GFR (CKD-EPI)NonAf (>60 ml/min/1.73 sqM) Glucose (74-99) mg/dL Calcium (8.4-10.2) mg/dL Magnesium (1.6-2.3) mg/dL Total Bilirubin (0.2-1.3) mg/dL AST (14-36) U/L ALT (4-34) U/L Alkaline Phosphatase (38-126) U/L Troponin I 1.460 H* (0.000-0.034) ng/mL Total Protein (6.3-8.2) g/dL Albumin (3.5-5.0) g/dL HCG, Qual Not Detected Disposition <Ryann Segovia A - Last Filed: 06/26/21 11:00> Is patient prescribed a controlled substance at d/c from ED?: No Time of Disposition: 10:38 <Jez Joyce P - Last Filed: 06/26/21 11:02> Clinical Impression: ST elevation myocardial infarction (STEMI) Disposition: ADMITTED IP TO THIS HOSP Referrals: None,Stated [Primary Care Provider] - 1-2 days
[2021-06-26 08:33] LABS: Basophils # (A) 0.1 k/uL (0-0.2); Basophils % (A) 1 %; Eosinophils # (A) 0.3 k/uL (0-0.7); Eosinophils % (A) 3 %; HCT 41.5 % (34.0-46.0); HGB 13.2 gm/dL (11.4-16.0); Lymphocytes # (A) 3.1 k/uL (1.0-4.8); Lymphocytes % (A) 30 %; MCH 27.5 pg (25.0-35.0); MCHC 31.9 g/dL (31.0-37.0); MCV 86.2 fL (80.0-100.0); Mean Platelet Volume 8.2; Monocytes # (A) 0.6 k/uL (0-1.0); Monocytes % (A) 5 %; Neutrophils # (A) 6.1 k/uL (1.3-7.7); Neutrophils % (A) 60 %; Platelet Count 345 k/uL (150-450); RBC 4.81 m/uL (3.80-5.40); RDW 14.7 % (11.5-15.5); WBC 10.2 k/uL (3.8-10.6)
[2021-06-26 08:47] LABS: INR 0.9 (<1.2); Partial Thromboplastin Time 24.3 sec (22.0-30.0); Prothrombin Time 9.8 sec (9.0-12.0)
--- NOTE | 2021-06-26 08:47 | XR ---
EXAMINATION TYPE: XR chest 2V DATE OF EXAM: 06/26/2021 COMPARISON: 05/23/2021 HISTORY: 35 years Female. STUDY INDICATION GIVEN: Chest Pain . TECHNIQUE: Frontal and lateral chest radiographs IMPRESSION: Marked decrease/near resolution in previously described left midlung opacities. No evidence for new focal airspace disease, pneumothorax or pleural effusion. No pneumothorax or pleural effusion. Normal cardiomediastinal silhouette. No acute osseous abnormality.
[2021-06-26 08:53] LABS: ALT 28 U/L (4-34); AST 40 U/L (14-36); African American GFR (CKD) >90 (>60 ml/min/1.73 sqM); Albumin 3.9 g/dL (3.5-5.0); Alkaline Phosphatase 119 U/L (38-126); Anion Gap 8 mmol/L; Blood Urea Nitrogen 6 mg/dL (7-17); Calcium 9.8 mg/dL (8.4-10.2); Carbon Dioxide 23 mmol/L (22-30); Chloride 109 mmol/L (98-107); Glucose 103 mg/dL (74-99); Magnesium 1.7 mg/dL (1.6-2.3); Non-African American GFR(CKD) >90 (>60 ml/min/1.73 sqM); Potassium 3.8 mmol/L (3.5-5.1); Sodium 140 mmol/L (137-145); Total Bilirubin 0.3 mg/dL (0.2-1.3); Total Protein 6.8 g/dL (6.3-8.2)
[2021-06-26] MEDS ORDERED: LORazepam 2 MG/ML INJ IV STA (09:31)
[2021-06-26] MEDS ORDERED: ONDANSETRON 4 MG/2 ML VIAL IVP STA ×2 (09:36→09:59)
[2021-06-26] MEDS ORDERED: ASPIRIN 81 MG PO STA (09:41)
[2021-06-26] MEDS ORDERED: RX INFO: IV CONTRAST WAS GIVEN 1 EACH MISC MISCELLANE PRN ×2 (09:42→12:05)
[2021-06-26] MEDS ORDERED: NITROGLYCERIN SL TABS 0.4 MG TAB SUBLINGUAL STA ×2 (09:44→10:25)
[2021-06-26] MEDS ORDERED: MORPHINE SULFATE 4 MG/ML SYRINGE IVP STA (09:59)
[2021-06-26] MEDS ORDERED: HEPARIN SODIUM 1,000 UN/ML (10ML VL) IV PRN (10:16)
[2021-06-26] MEDS ORDERED: HEPARIN SODIUM 1,000 UN/ML (10ML VL) IV ONE ×2 (10:16→11:27)
[2021-06-26] MEDS ORDERED: HYDROmorphone 0.5 MG/0.5 ML SYRINGE IVP STA (10:20)
[2021-06-26] MEDS ORDERED: HEPARIN SOD,PORK IN 0.45% NACL 25,000 UNIT in 0.45% NACL 1 250ML.BAG IV SCH (10:30)
[2021-06-26] MEDS ORDERED: NITROGLYCERIN-D5W PMX 50 MG in DEXTROSE/WATER 1 250ML.BAG IV ONE (10:32)
--- NOTE | 2021-06-26 10:40 | CT ---
EXAMINATION TYPE: CT angio chest DATE OF EXAM: 06/26/2021 10:24 AM COMPARISON: None HISTORY: severe chest pain CT DLP: 837.6 mGycm Automated exposure control for dose reduction was used. CONTRAST: CTA scan of the thorax is performed with IV Contrast, patient injected with 100 mL of Isovue 370, pul monary embolism protocol. . FINDINGS: LUNGS: Significant respiratory motion is noted which limits evaluation of the lung parenchyma. With c onsideration for the limitation of this study secondary to motion there is no evidence for focal airs pace disease, pneumothorax or pleural effusion. There is gross patency of the trachea and bronchial t ree though respiratory motion significantly affects evaluation of the bronchi. There is normal in size and there is no pericardial effusion. Prominent mediastinal and hilar lymph nodes are noted. No axillary lymph nodes are enlarged. MEDIASTINUM: The average Hounsfield unit of the right trunk is approximately 215 Hounsfield units. Th ere is suboptimal evaluation of the segmental and subsegmental pulmonary arteries. No occlusive filli ng defect are seen in the pulmonary trunk, right or left pulmonary arteries. I artery diameter is 2.6 cm. The intrathoracic aorta is normal in caliber and has a 3 vessel configuration. OTHER: Suboptimal evaluation of the osseous structures due to motion. No grossly displaced fracture. Cystectomy clips partially seen in the right upper quadrant. IMPRESSION: 1. SUBOPTIMAL OPACIFICATION OF THE PULMONARY ARTERIES, CANNOT EXCLUDE LOBAR, SEGMENTAL OR SUBSEGMENTA L PULMONARY ARTERY EMBOLISM. 2. NO FILLING DEFECTS ARE SEEN IN THE PULMONARY TRUNK, RIGHT OR LEFT PULMONARY ARTERIES. 3. NO EVIDENCE FOR PNEUMONIA, PLEURAL EFFUSION OR PNEUMOTHORAX. 4. PROMINENT MEDIASTINAL AND HILAR LYMPH NODES, SUBOPTIMALLY EVALUATED DUE TO MOTION ARTIFACT AND LAC K OF IV CONTRAST, UNKNOWN CLINICAL SIGNIFICANCE AT THIS TIME, THIS COULD BE INFECTIOUS OR INFLAMMATOR Y. CLINICAL CORRELATION RECOMMENDED.
--- NOTE | 2021-06-26 10:42 | P.CRDCN ---
History of Present Illness History of present illness: HISTORY OF PRESENTING ILLNESS This is a pleasant 35-year-old with past medical history significant for previous meth use, since quit approximately 2 years ago who presents secondary chest pain. Patient states that off and on for last 8-12 hours she has been having chest pain. She admits associated diaphoresis, shortness breath. When she came in the emergency department and had in fact improved. She had taken "cradum" yesterday for helping with her concentration however denies any other drug use. She was having chest pain and therefore apparently took Suboxone which her boyfriend had. She states her father had an MD at the age of 24 however appears related to rheumatic fever. In the emergency department she started having recurrent chest pain and serial EKG showed new ST depressions and then anterior septal ST elevations. STEMI alert was activated. She was given nitroglycerin with improvement in pain. CT dissection protocol was performed however pending results. She does have significant vaginal bleeding and is currently on her period. Blood work shows normal hemoglobin 13, normal creatinine, troponin 1. REVIEW OF SYSTEMS At the time of my exam: CONSTITUTIONAL: Denies fever or chills. CARDIOVASCULAR: +chest pain, +shortness of breath, no orthopnea, PND or p alpitations. RESPIRATORY: Denies cough. GASTROINTESTINAL: Denies abdominal pain, diarrhea, constipation, nausea or vomiting. MUSCULOSKELETAL: Denies myalgias. NEUROLOGIC: Denies numbness, tingling or weakness. ENDOCRINE: Denies fatigue, weight change, polydipsia or polyurina. GENITOURINARY: Denies burning, hematuria or urgency with micturation. HEMATOLOGIC: Denies history of anemia or bleeding. PHYSICAL EXAMINATION Vital signs reviewed. CONSTITUTIONAL: Ill appearing, diaphoretic, obese HEENT: Head is normocephalic. Pupils are equal, round. Sclerae anicteric. Mucous membranes of the mouth are moist. No JVD. No carotid bruit. CHEST EXAMINATION: Lungs are clear to auscultation. No chest wall tenderness is noted on palpation or with deep breathing. HEART EXAMINATION: Regular rate and rhythm. S1, S2 heard. No murmurs, gallops or rub. ABDOMEN: Soft, nontender. Positive bowel sounds. EXTREMITIES: 2+ peripheral pulses, no lower extremity edema and no calf tenderness. NEUROLOGIC EXAMINATION: Patient is awake, alert and oriented x3. ASSESSMENT 1. Non-STEMI, evolved to STEMI while in the emergency department. Improved with nitroglycerin 2. Recent "cradum" use 3. Prior history of meth use 4. History of vaginal bleeding, significant per patient however normal hemoglobin PLAN Patient appears to have had progression of non-STEMI to STEMI while in the emergency department. Initially she was chest pain-free however developed chest pain, diaphoresis, nausea and ill-appearing. CT dissection protocol was ordered. Repeat EKG concerning for anterior septal infarct. She denies any cocaine however did use Cradum today. We will check urine drug screen. Check lipid profile. Check 2-D echo. Emergency heart catheterization recommended. Past Medical History Past Medical History: Asthma Additional Past Medical History / Comment(s): heart murmur as a child History of Any Multi-Drug Resistant Organisms: None Reported Past Surgical History: Section, Cholecystectomy Additional Past Surgical History / Comment(s): clamp on liver due to "liver bleed during gall bladder surgery" Past Anesthesia/Blood Transfusion Reactions: Previous Problems w/ Anesthesia Additional Past Anesthesia/Blood Transfusion Reaction / Comment(s): "freaked out when coming out and jumped off stretcher" Past Psychological History: Anxiety, Depression Smoking Status: Current every day smoker Past Alcohol Use History: None Reported Past Drug Use History: None Reported - Past Family History Father Family Medical History: No Reported History Medications and Allergies Home Medications Medication Instructions Recorded Confirmed Type Albuterol Sulfate [Proair Hfa] 2 puff INHALATION RT-QID PRN 06/26/21 06/26/21 History Allergies Allergy/AdvReac Type Severity Reaction Status Date / Time codeine AdvReac Mild Abdominal Verified 06/26/21 10:16 Pain amoxicillin AdvReac DOES NOT Verified 06/26/21 10:16 WORK Physical Exam Vitals: Vital Signs Temp Pulse Resp BP Pulse Ox 06/26/21 10:27 92 18 139/115 99 06/26/21 09:24 98 F 90 18 143/84 98 06/26/21 08:00 98 F 81 18 130/83 98 Intake and Output 06/25/21 06/26/21 06/26/21 22:59 06:59 14:59 Other: Weight 92.986 kg Results 06/26/21 08:19 06/26/21 08:19 Cardiac Enzymes 09/18/21 09/18/21 Range/Units 08:19 08:19 AST 40 H (14-36) U/L Troponin I 1.460 H* (0.000-0.034) ng/mL Coagulation 06/26/21 Range/Units 08:19 PT 9.8 (9.0-12.0) sec APTT 24.3 (22.0-30.0) sec CBC 06/26/21 Range/Units 08:19 WBC 10.2 (3.8-10.6) k/uL RBC 4.81 (3.80-5.40) m/uL Hgb 13.2 (11.4-16.0) gm/dL Hct 41.5 (34.0-46.0) % Plt Count 345 (150-450) k/uL Comprehensive Metabolic Panel 06/26/21 Range/Units 08:19 Sodium 140 (137-145) mmol/L Potassium 3.8 (3.5-5.1) mmol/L Chloride 109 H (98-107) mmol/L Carbon Dioxide 23 (22-30) mmol/L BUN 6 L (7-17) mg/dL Creatinine 0.64 (0.52-1.04) mg/dL Glucose 103 H (74-99) mg/dL Calcium 9.8 (8.4-10.2) mg/dL AST 40 H (14-36) U/L ALT 28 (4-34) U/L Alkaline Phosphatase 119 (38-126) U/L Total Protein 6.8 (6.3-8.2) g/dL Albumin 3.9 (3.5-5.0) g/dL Current Medications Generic Name Dose Route Start Last Admin Trade Name Freq PRN Reason Stop Dose Admin Heparin Sodium (Porcine) 0 unit 06/26/21 10:16 Heparin Sodium 1,000 Un/Ml (10ml Vl) IV PER PROTOCOL PRN Low PTT Protocol Heparin Sodium/Sodium Chloride 250 mls @ 9.95 mls/hr 06/26/21 10:30 25,000 unit/ Sodium Chloride IV .Q24H FABIOLA Protocol 10.7 UNITS/KG/HR Nitroglycerin/Dextrose 50 mg/ 250 mls @ 3 mls/hr 06/26/21 10:32 IV Solution IV 06/27/21 10:31 .Q24H ONE Protocol 10 MCG/MIN Miscellaneous Information 1 each 06/26/21 09:42 Rx Info: Iv Contrast Was Given 1 Each Misc MISCELLANE 06/28/21 09:43 DAILY PRN Per Protocol Intake and Output 06/25/21 06/26/21 06/26/21 22:59 06:59 14:59 Other: Weight 92.986 kg Patient Weight 06/27/21 06:59 Weight 92.986 kg 06/26/21 08:19 06/26/21 08:19
[2021-06-26] MEDS ORDERED: LIDOCAINE 1% INJ 10MG/ML (20 ML MDV) ONE (10:43)
[2021-06-26] MEDS ORDERED: VERAPAMIL 2.5 MG/ML 2 ML AMP ONE (10:43)
[2021-06-26] MEDS ORDERED: IV FLUID CONTINUATION 1,000 ML IV ONE (10:52)
[2021-06-26] MEDS ORDERED: MIDAZOLAM 2 MG/2 ML VIAL IV ONE (11:01)
[2021-06-26] MEDS ORDERED: fentaNYL (PF) 50 MCG/ML 2 ML AMP ONE (11:02)
[2021-06-26] MEDS ORDERED: LIDOCAINE 1% INJ 10MG/ML (20 ML MDV) SQ ONE (11:04)
[2021-06-26] MEDS ORDERED: fentaNYL (PF) 50 MCG/ML 2 ML AMP IV ONE (11:04)
[2021-06-26] MEDS ORDERED: VERAPAMIL SYRINGE (5 MG/10 ML) INTRAARTER ONE (11:05)
[2021-06-26] MEDS ORDERED: PRASUGREL 10 MG TAB ONE (11:13)
[2021-06-26] MEDS ORDERED: PRASUGREL 10 MG TAB PO ONE (11:16)
[2021-06-26] MEDS: NITROGLYCERIN 1000MCG/10ML SYRINGE INTRACORON ONE ×2 (11:26→11:32)
[2021-06-26] MEDS ORDERED: HEPARIN SODIUM 1,000 UN/ML (10ML VL) ONE (11:27)
[2021-06-26] MEDS ORDERED: IOPAMIDOL-370 125ML BTL INJ ONE (11:36)
[2021-06-26] MEDS ORDERED: IOPAMIDOL-370 100ML BTL INJ ONE (11:37)
--- NOTE | 2021-06-26 11:46 | P.PRCINT ---
Percutaneous Coronary Int. - Percutaneous Coronary Intervention Percutaneous Coronary Intervention: PROCEDURES PERFORMED: Left heart catheterization, bilateral coronary angiography, PCI proximal LAD with a 4.0 x 12 mm Xience SUZY, penumbra aspiration thrombectomy INDICATION: Non-STEMI with evolving STEMI HISTORY: Patient is a pleasant 35-year-old female with history of previous meth use who presents secondary to chest pain over the last 8-12 hours off and on. She admits that she did use Kratum yesterday and also tried Suboxone which was her boyfriend's to see if this helps with any of the pain. She came to the emergency department and was found to have non-STEMI however was chest pain- free. She then developed chest pain with evolving anterior septal STEMI however this improved with nitroglycerin. By the time she gets the Pediatric Registered Nurse ST elevations had improved and she was chest pain-free. CONSENT:I have discussed the risks, benefits and alternative therapies for the above-mentioned procedure and for both sedation/analgesia as well as necessary blood product administration, if indicated, as they pertain to this patient. The patient has indicated understanding and acceptance of the risks and procedures discussed. PROCEDURE: After the risks, benefits and alternatives of the above mentioned procedure explained in detail with the patient, informed consent was obtained. Patient was taken to the catheterization lab and prepped and draped in usual fashion. 1% lidocaine was used to anesthetize the right radial artery. A 6- Stateless sheath was placed in the right radial artery using modified Seldinger technique. Left coronary angiography was performed with a 5-Stateless JL 3.5 catheter and right coronary angiography was performed with a 5-Stateless JR5 catheter in various views. The 6Fr CLS guide catheter was inserted into the left ventricle and pressure measurements were obtained. A 6-Stateless CLS 3.0 guide was used to engage the left main. A 0.014 BMW wire was advanced into the distal LAD. Penumbra aspiration thrombectomy was performed. This decision was made to perform direct stenting. A 4.0 x 12 mm Xience SUZY was placed at the proximal LAD.. Intervention there is 95% stenosis with SCOTT 3 flow and postintervention there was 0% stenosis with SCOTT 3 flow and no dissection noted. The right radial sheath was removed and a TR band was placed with hemostasis achieved. The patient tolerated the procedure well. Patient was transported back to the post catheterization holding area in stable condition. Conscious Sedation: Patient was monitored under the direct supervision of vision of myself for conscious sedation using Versed and fentanyl for a total duration of [] minutes HEMODYNAMICS: Ao: 128/83 LV: 143/22, LVEDP 38 SELECTIVE CORONARY ARTERIOGRAPHY: LEFT MAIN: The left main is a large caliber vessel which bifurcates into the LAD and circumflex. There is no significant stenosis. LEFT ANTERIOR DESCENDING CORONARY ARTERY: LAD is a large caliber vessel which wraps around to the apex. There is a proximal LAD 95% stenosis with what appears to be heavy thrombus burden. Otherwise the LAD is normal. LEFT CIRCUMFLEX CORONARY ARTERY: Left circumflex is a moderate caliber vessel without significant stenosis. RIGHT CORONARY ARTERY: The right coronary artery is a large caliber vessel which gives off a PDA and PLV branch and is the dominant vessel. There is no significant stenosis. FINAL IMPRESSION: 1. Normal coronary arteries as described above other than 95% proximal LAD stenosis. 2. S/p PCI proximal LAD with a 4.0 x 12 mm Xience SUZY 3. Elevated left sided filling pressures PLAN: 1. Aggressive risk factor modification per most recent ACC/AHA guidelines. 2. Continue dual antiplatelets for 12 months. 3. Check urine drug screen, may be a result of drug use, Kratum use with otherwise normal coronary arteries.
[2021-06-26] MEDS ORDERED: ATROPINE SULFATE 0.1 MG/ML 10ML SYRINGE IV PRN (12:05)
[2021-06-26] MEDS ORDERED: NITROGLYCERIN SL TABS 0.4 MG TAB SUBLINGUAL PRN (12:05)
[2021-06-26] MEDS ORDERED: MAG HYDROX/AL HYDROX/SIMETH 30 ML CUP PO PRN (12:05)
[2021-06-26] MEDS ORDERED: ZOLPIDEM 5 MG TAB PO PRN (12:05)
[2021-06-26 12:14] LABS: Glucose,Whole Blood 108 mg/dL (75-99)
[2021-06-26] MEDS: METOPROLOL SUCCINATE (ER) 25 MG TAB.ER.24H PO SCH (12:58)
[2021-06-26] MEDS: SODIUM CHLORIDE 0.9% 1,000 ML IV SCH (15:45)
[2021-06-26] MEDS ORDERED: ALBUTEROL HFA INHALER INHALATION PRN (16:51)
[2021-06-26] MEDS ORDERED: ALPRAZolam 0.25 MG TAB PO PRN (16:53)
[2021-06-26] MEDS ORDERED: TEMAZEPAM 15 MG CAP PO PRN (16:53)
[2021-06-26 17:03] LABS: Amphetamine Screen,Urine Not Detected (NotDetected); Benzodiazepines Screen,Urine Detected (NotDetected); Cocaine Screen,Urine Not Detected (NotDetected); Opiate Screen,Urine Detected (NotDetected); Phencyclidine Screen,Urine Not Detected (NotDetected); Urn Cannabinoid Scrn Detected (NotDetected)
[2021-06-26 17:04] LABS: Barbiturate Screen,Urine Not Detected (NotDetected); Methadone Screen, Urine Not Detected (NotDetected); Oxycodone Screen, Urine Not Detected (NotDetected); Tricyclic Antidepressant,Urine Not Detected (NotDetected)
--- NOTE | 2021-06-26 17:31 | HP ---
HISTORY AND PHYSICAL DATE OF SERVICE: 06/26/2021 CHIEF COMPLAINT: Chest pain. HISTORY OF PRESENT ILLNESS: This 35-year-old woman with a past medical history of asthma, history of heart murmur as a child, history of cholecystectomy, history of depression, anxiety, history of nicotine dependence, being followed by no primary physician in the outpatient setting, was complaining of chest pain. The pain was last night before going to bed and was a burning-type of chest pain in the middle of the chest. Today morning the patient felt severe chest pain and 911 was called and the patient was taken to [facility] Emergency Room and was admitted for further evaluation and treatment. Subsequently, before going to the CT scan, patient developed diaphoresis and vomiting and the patient had significant ST elevations suggestive of hyperacute infarction, and troponins also went up to 2.960. The patient underwent cardiac catheterization. LAD stenting was done. The patient was admitted for further evaluation and treatment. There is no history of any fever, rigors or chills. No history of headache, loss of consciousness, seizures. PAST MEDICAL HISTORY: Asthma, heart murmurs, section, cholecystectomy, history of anxiety, depression, nicotine dependence. HOME MEDICATIONS: Albuterol p.r.n. ALLERGIES: CODEINE, AMOXICILLIN. FAMILY HISTORY: History of heart disease in father, who had a heart attack and rheumatic heart disease in his 20s and stenting apparently. SOCIAL HISTORY: History of smoking. Patient was in [place] recently for oxycodone abuse. The patient also apparently had multiple substance abuse previously, including cocaine, according to the staff. REVIEW OF SYSTEMS: ENT: No diminished hearing. No diminished vision. CARDIOVASCULAR SYSTEM: As mentioned earlier. RESPIRATORY SYSTEM: As mentioned earlier. GI: No nausea, vomiting, diarrhea. : No dysuria. NERVOUS SYSTEM: No numbness, weakness. ALLERGY/IMMUNOLOGY: As mentioned earlier. HEMATOLOGY/ONCOLOGY: No history of anemia. ENDOCRINE: No history of diabetes, hypothyroidism. CONSTITUTIONAL: As mentioned earlier. DERMATOLOGY: Negative. RHEUMATOLOGY: Negative. PSYCHIATRY: As mentioned earlier. PHYSICAL EXAMINATION: Patient alert and oriented x3. Pulse 71, blood pressure 143/93, respiration 20, temperature normal, pulse ox 98% on room. HEENT: Conjunctivae normal. NECK: No jugular venous distention. CARDIOVASCULAR: S1, S2 muffled. RESPIRATION: Breath sounds diminished at the bases. No rhonchi. No crackles. ABDOMEN: Soft, nontender. No mass palpable. LEGS: No edema. No swelling. NERVOUS SYSTEM: Higher functions as mentioned earlier. Moves all 4 limbs. No focal motor or sensory deficit. LYMPHATICS: No lymph node palpable in neck, axillae or groin. SKIN: No ulcer, rash, bleeding. JOINTS: No active deforming arthropathy. LABS: CBC within normal limits. Chloride is 109. Glucose is 103. Troponin 1.46 and 2.960. ASSESSMENT: 1. Acute ST-elevation myocardial infarction, status post cardiac arrest and stenting of the LAD. 2. Troponin elevated up to 2.960. 3. Family history of premature coronary disease. 4. History of nicotine dependence. 5. History of asthma. 6. Heart murmur as a child. 7. History of cholecystectomy. 8. History of section. 9. History of polysubstance abuse previously. 10.History of anxiety, depression. 11.Obesity with body mass of 41.9. 12.FULL CODE. RECOMMENDATIONS AND DISCUSSION: In this 35-year-old woman presented with multiple complex medical issues, we will monitor the patient closely, continue the current medications, continue symptomatic treatment. The patient is monitored in the ICU at this time post PTCA protocol and heparin. Otherwise, dual antiplatelet treatment and high-dose Lipitor and the rest of the medications. Prognosis guarded because of multiple complex issues. Further recommendations to follow. Also recommend smoking cessation. See orders for further details. MMODL / IJN: [id number] /
[2021-06-26] MEDS: ATORVASTATIN 80 MG TAB PO SCH (18:19)
[2021-06-27] MEDS: SODIUM CHLORIDE 0.9% 1,000 ML IV SCH ×2 (04:08→22:34)
[2021-06-27 04:17] LABS: Basophils % (A) 0 %; Eosinophils # (A) 0.2 k/uL (0-0.7); Eosinophils % (A) 2 %; HCT 38.1 % (34.0-46.0); HGB 12.1 gm/dL (11.4-16.0); Lymphocytes # (A) 2.4 k/uL (1.0-4.8); Lymphocytes % (A) 24 %; MCH 27.7 pg (25.0-35.0); MCHC 31.9 g/dL (31.0-37.0); Mean Platelet Volume 7.8; Monocytes # (A) 0.6 k/uL (0-1.0); Monocytes % (A) 6 %; Neutrophils # (A) 6.5 k/uL (1.3-7.7); Neutrophils % (A) 67 %; Platelet Count 268 k/uL (150-450); RBC 4.38 m/uL (3.80-5.40); RDW 14.9 % (11.5-15.5); WBC 9.7 k/uL (3.8-10.6)
[2021-06-27 04:41] LABS: African American GFR (CKD) >90 (>60 ml/min/1.73 sqM); Anion Gap 8 mmol/L; Blood Urea Nitrogen 5 mg/dL (7-17); Calcium 9.2 mg/dL (8.4-10.2); Carbon Dioxide 20 mmol/L (22-30); Chloride 111 mmol/L (98-107); Glucose 103 mg/dL (74-99); Non-African American GFR(CKD) >90 (>60 ml/min/1.73 sqM); Sodium 139 mmol/L (137-145)
[2021-06-27] MEDS: ASPIRIN 81 MG PO SCH (07:42)
[2021-06-27] MEDS: ATORVASTATIN 80 MG TAB PO SCH (07:43)
[2021-06-27] MEDS: METOPROLOL SUCCINATE (ER) 25 MG TAB.ER.24H PO SCH (07:43)
[2021-06-27] MEDS: PRASUGREL 10 MG TAB PO SCH (07:43)
[2021-06-27] MEDS ORDERED: ONDANSETRON 4 MG/2 ML VIAL IVP PRN (08:36)
[2021-06-27 11:46] LABS: Chol/HDL Ratio 4.79; Cholesterol 139 mg/dL (0-200); LDL Cholesterol,Calculated 84.6 mg/dL (0.0-131.0)
[2021-06-27] MEDS: cloNIDine HCL 0.1 MG TAB PO SCH ×3 (12:54→23:46)
[2021-06-27] MEDS: PANTOPRAZOLE 40 MG/10 ML VIAL IVP SCH ×2 (12:54→22:34)
[2021-06-27] MEDS: LORazepam 2 MG/ML INJ IV PRN ×3 (12:55→23:45)
[2021-06-27] MEDS: ONDANSETRON 4 MG/2 ML VIAL IVP PRN ×3 (13:00→22:37)
--- NOTE | 2021-06-27 13:39 | P.PN ---
Subjective HISTORY OF PRESENTING ILLNESS This is a pleasant 35-year-old with past medical history significant for previous meth use, since quit approximately 2 years ago who presents secondary chest pain. Patient states that off and on for last 8-12 hours she has been having chest pain. She admits associated diaphoresis, shortness breath. When she came in the emergency department and had in fact improved. She had taken "cradum" yesterday for helping with her concentration however denies any other drug use. She was having chest pain and therefore apparently took Suboxone which her boyfriend had. She states her father had an CO at the age of 24 ho wever appears related to rheumatic fever. In the emergency department she started having recurrent chest pain and serial EKG showed new ST depressions and then anterior septal ST elevations. STEMI alert was activated. She was given nitroglycerin with improvement in pain. CT dissection protocol was performed however pending results. She does have significant vaginal bleeding and is currently on her period. Blood work shows normal hemoglobin 13, normal creatinine, troponin 1. 06/27 Patient seen and examined. Patient denies any further chest pain. She did have a heart cath which showed relatively normal coronary arteries other than a proximal LAD lesion with successful PCI. She denies any shortness breath. Echocardiogram is pending. Urine drug screen was positive for opiates, aubrie odiazepines as well as marijuana however this appears to have been drawn after heart catheterization with sedation given. She admits she takes approximately 2 Suboxone once daily and appears to be withdrawing currently. She is mildly diaphoretic, nauseous. She has been receiving withdrawal protocol and is currently somewhat lethargic however besides the nausea feeling okay. She believes she was able to keep the Effient down. PHYSICAL EXAMINATION Vital signs reviewed. CONSTITUTIONAL: Somnolent, appears to be withdrawing, obese HEENT: Head is normocephalic. Pupils are equal, round. Sclerae anicteric. Mucous membranes of the mouth are moist. No JVD. No carotid bruit. CHEST EXAMINATION: Lungs are clear to auscultation. No chest wall tenderness is noted on palpation or with deep breathing. HEART EXAMINATION: Regular rate and rhythm. S1, S2 heard. No murmurs, gallops or rub. ABDOMEN: Soft, nontender. Positive bowel sounds. EXTREMITIES: 2+ peripheral pulses, no lower extremity edema and no calf tenderness. NEUROLOGIC EXAMINATION: Patient is awake, alert and oriented x3. ASSESSMENT 1. Non-STEMI, evolved to STEMI while in the emergency department. 2. Recent "cradum" use 3. Prior history of meth use 4. History of vaginal bleeding, significant per patient however normal hem oglobin 5. Coronary artery disease with proximal LAD obstructive stenosis status post PCI. May have been exacerbated by Kradum use 6. Unprescribed Suboxone use, currently appears to be withdrawing PLAN Continue dual antiplatelets for 12 months. Monitor with her vaginal bleeding. Patient currently appears to be withdrawing from unprescribed Suboxone. There may have been an association with Kradum and discussed total cessation. Tobacco cessation. Objective - Vital Signs Vital signs: Vital Signs Temp 98.5 F 06/27/21 12:10 Pulse 71 06/27/21 12:10 Resp 13 06/27/21 12:10 BP 167/130 06/27/21 12:10 Pulse Ox 97 06/27/21 12:10 Intake & Output 06/26/21 06/27/21 06/27/21 18:59 06:59 18:59 Intake Total 550 900 300 Output Total 425 450 750 Balance 125 450 -450 Weight 104 kg 106.7 kg Intake: IV 550 900 300 Sodium Chloride 0.9% 1, 450 900 300 000 ml @ 75 mls/hr IV . [id number] [facility] Rx#:[id number] Output: Urine 425 450 200 Emesis 550 Other: Voiding Method Toilet Toilet Toilet # Voids 1 2 # Bowel Movements 2 - Labs CBC & Chem 7: 06/27/21 03:47 06/27/21 03:47 Labs: Abnormal Lab Results - Last 24 Hours (Table) 06/26/21 06/26/21 06/26/21 Range/Units 10:16 13:25 16:28 Chloride (98-107) mmol/L Carbon Dioxide (22-30) mmol/L BUN (7-17) mg/dL Creatinine (0.52-1.04) mg/dL Glucose (74-99) mg/dL Troponin I 2.960 H* 4.710 H* (0.000-0.034) ng/mL HDL Cholesterol (40.0-60.0) mg/dL Urine Opiates Screen Detected H (NotDetected) U Benzodiazepines Scrn Detected H (NotDetected) U Marijuana (THC) Screen Detected H (NotDetected) 06/27/21 Range/Units 03:47 Chloride 111 H (98-107) mmol/L Carbon Dioxide 20 L (22-30) mmol/L BUN 5 L (7-17) mg/dL Creatinine 0.47 L (0.52-1.04) mg/dL Glucose 103 H (74-99) mg/dL Troponin I (0.000-0.034) ng/mL HDL Cholesterol 29.0 L (40.0-60.0) mg/dL Urine Opiates Screen (NotDetected) U Benzodiazepines Scrn (NotDetected) U Marijuana (THC) Screen (NotDetected)
--- NOTE | 2021-06-27 18:41 | XR ---
EXAMINATION TYPE: XR chest 1V portable DATE OF EXAM: 06/27/2021 COMPARISON: 06/26/2021 HISTORY: Short of breath TECHNIQUE: Single view FINDINGS: Heart is normal. Lungs are clear of consolidation. There is coarsening of interstitial desiree ings. There is no pleural effusion. There are chest leads. IMPRESSION: Mild increased lung markings. No obvious heart failure or pulmonary consolidation. Allowi ng for different technique there is no change compared to exam this morning..
--- NOTE | 2021-06-27 19:48 | PN ---
PROGRESS NOTE DATE OF SERVICE: 06/27/2021 This 35-year-old woman who was admitted with acute ST-segment elevation myocardial infarction underwent cardiac catheterization and stenting of the LAD. Today the patient is complaining of tiredness, weakness, clamminess and vomiting indicative of withdrawal syndrome. The patient also revealed to me that apparently patient is getting Suboxone from a volumetric weigher and paying money on a daily basis. The patient also had previous history of multiple substance use. Cardiology following the patient closely. PAST MEDICAL HISTORY: Reviewed. REVIEW OF SYSTEMS: CARDIOVASCULAR: No angina. RESPIRATORY: As mentioned earlier. : No dysuria or retention. NERVOUS SYSTEM: As mentioned earlier. CURRENT MEDICATIONS: Reviewed and include: Maalox, Ventolin. Xanax, aspirin, Lipitor, Atropine, Catapres. Doses reviewed. PHYSICAL EXAMINATION: Patient alert and oriented times three. Pulse 54, blood pressure 176/77, respirations 37, temperature 98.2, pulse ox 97% on 2 L. HEENT: Conjunctivae normal. NECK: No JVD. CARDIOVASCULAR: S1, S2 muffled. RESPIRATORY SYSTEM: Breath sounds diminished at the bases. A few scattered rhonchi. ABDOMEN: Soft. Nontender. NERVOUS SYSTEM: No focal deficits. LABORATORY DATA: CBC within normal limits. Sodium 130, potassium 4. ASSESSMENT: 1. Acute ST-segment elevation myocardial infarction status post cardiac cath, stenting of the LAD. 2. Troponin elevated up to 2.960. 3. Polysubstance abuse and drug withdrawal symptoms. 4. Family history of premature coronary artery disease. 5. History of nicotine dependence. 6. History of asthma. 7. Heart murmur as a child. 8. Suboxone and ketamine usage recently. 9. History of cholecystectomy. 10.History of Caesarean section. 11.History of anxiety, depression. 12.Obesity with body mass index of 41.9. 13.FULL CODE. RECOMMENDATIONS AND DISCUSSION: Continue current medications, monitoring, symptomatic treatment. Otherwise, add clonidine and Ativan to the current regimen. I would also recommend portable chest x- ray. Prognosis guarded because of multiple complex medical issues. Further recommendations to follow. D-dimer has been negative before. MMODL / IJN: [id number] /
[2021-06-28] MEDS: ONDANSETRON 4 MG/2 ML VIAL IVP PRN ×3 (03:49→17:42)
[2021-06-28] MEDS: LORazepam 2 MG/ML INJ IV PRN (04:45)
[2021-06-28] MEDS: SODIUM CHLORIDE 0.9% 1,000 ML IV SCH (04:50)
--- NOTE | 2021-06-28 07:46 | P.CRDCN ---
History of Present Illness Consult date: 06/28/21 Chief complaint: Chest pain/acute coronary syndrome History of present illness: This is a 35-year-old female patient who was admitted to the hospital with chest discomfort and was diagnosed with acute coronary syndrome be she underwent a heart catheterization and stenting of the LAD. The patient was seen this morning. She denies any symptoms of chest pain or chest discomfort or shortness of breath. She has been maintaining normal sinus mechanism was sinus bradycardia. She is on dual antiplatelet therapy along with high intensity statin. The echocardiogram is pending at this point. Past Medical History Past Medical History: Asthma Additional Past Medical History / Comment(s): heart murmur as a child History of Any Multi-Drug Resistant Organisms: None Reported Past Surgical History: Section, Cholecystectomy Additional Past Surgical History / Comment(s): clamp on liver due to "liver bleed during gall bladder surgery" Past Anesthesia/Blood Transfusion Reactions: Previous Problems w/ Anesthesia Additional Past Anesthesia/Blood Transfusion Reaction / Comment(s): "freaked out when coming out and jumped off stretcher" Past Psychological History: Anxiety, Depression Smoking Status: Current every day smoker Past Alcohol Use History: None Reported Past Drug Use History: None Reported - Past Family History Father Family Medical History: No Reported History Medications and Allergies Home Medications Medication Instructions Recorded Confirmed Type Albuterol Sulfate [Proair Hfa] 2 puff INHALATION RT-QID PRN 06/26/21 06/26/21 History Allergies Allergy/AdvReac Type Severity Reaction Status Date / Time codeine AdvReac Mild Abdominal Verified 06/26/21 10:16 Pain amoxicillin AdvReac DOES NOT Verified 06/26/21 10:16 WORK Physical Exam Vitals: Vital Signs Temp Pulse Resp BP Pulse Ox 06/28/21 07:28 24 06/28/21 07:00 63 24 137/79 97 06/28/21 06:00 69 24 158/88 96 06/28/21 05:00 62 22 143/88 94 L 06/28/21 04:00 98.3 F 67 23 151/97 95 06/28/21 03:00 70 21 141/82 94 L 06/28/21 02:00 74 34 H 155/81 94 L 06/28/21 01:00 63 32 H 150/88 94 L 06/28/21 00:00 98.6 F 57 L 25 H 156/99 95 06/27/21 23:00 71 16 130/85 97 06/27/21 22:00 62 16 151/92 96 06/27/21 21:00 56 L 32 H 135/86 95 06/27/21 20:00 98.4 F 60 45 H 150/94 97 06/27/21 19:00 58 L 26 H 129/100 97 06/27/21 18:15 54 L 17 129/100 98 06/27/21 17:05 54 L 37 H 117/67 96 06/27/21 16:05 98.6 F 53 L 22 131/97 97 06/27/21 15:49 25 H 06/27/21 15:25 51 L 25 H 96 06/27/21 15:10 48 L 20 128/69 98 06/27/21 14:30 48 L 22 158/89 96 06/27/21 14:20 62 28 H 96 06/27/21 14:10 56 L 17 158/89 97 06/27/21 14:00 55 L 25 H 98 06/27/21 13:50 63 28 H 97 06/27/21 13:40 53 L 31 H 97 06/27/21 13:30 97 06/27/21 13:10 55 L 13 162/85 97 06/27/21 12:10 98.5 F 71 13 167/130 97 06/27/21 12:00 22 06/27/21 11:10 61 22 143/111 98 06/27/21 11:00 97 06/27/21 10:10 75 14 155/106 97 06/27/21 09:10 78 146 H 143/113 96 06/27/21 08:10 82 14 130/75 98 06/27/21 08:05 71 18 130/75 97 Intake and Output 06/27/21 06/28/21 06/28/21 22:59 06:59 14:59 Intake Total 650 600 75 Output Total 600 200 0 Balance 50 400 75 Intake: IV 600 600 75 Sodium Chloride 0.9% 1, 600 600 75 000 ml @ 75 mls/hr IV . [id number] [facility] Rx#:[id number] Oral 50 Output: Urine 400 0 0 Emesis 200 200 Other: Voiding Method Toilet Toilet Weight 104.6 kg - Constitutional General appearance: no acute distress - Respiratory Respiratory: bilateral: CTA - Cardiovascular Rhythm: regular Heart sounds: normal: S1, S2 Results 06/27/21 03:47 06/27/21 03:47 Lipids 06/27/21 Range/Units 03:47 Triglycerides 127.0 (0.0-149.0) mg/dL Cholesterol 139 (0-200) mg/dL HDL Cholesterol 29.0 L (40.0-60.0) mg/dL Cholesterol/HDL Ratio 4.79 Current Medications Generic Name Dose Route Start Last Admin Trade Name Freq PRN Reason Stop Dose Admin Al Hydroxide/Mg Hydroxide 30 ml 06/26/21 12:05 Mag Hydrox/Al Hydrox/Simeth 30 Ml Cup PO Q4HR PRN Heartburn Albuterol Sulfate 2 puff 06/26/21 16:51 06/27/21 08:08 Albuterol Hfa Inhaler INHALATION 2 puff RT-QID PRN Administration Shortness Of Breath Alprazolam 0.25 mg 06/26/21 16:53 06/27/21 09:47 Alprazolam 0.25 Mg Tab PO 0.25 mg TID PRN Administration Anxiety Aspirin 81 mg 06/27/21 09:00 06/27/21 07:42 Aspirin 81 Mg PO 81 mg DAILY FABIOLA Administration Atorvastatin Calcium 80 mg 06/26/21 17:00 06/27/21 07:43 Atorvastatin 80 Mg Tab PO 80 mg DAILY FABIOLA Administration Atropine Sulfate 0.5 mg 06/26/21 12:05 Atropine Sulfate 0.1 Mg/Ml 10ml Syringe IV ONCE PRN Symptomatic Bradycardia Clonidine 0.1 mg 06/27/21 12:45 06/27/21 23:46 Clonidine Hcl 0.1 Mg Tab PO Not Given BID FABIOLA Heparin Sodium (Porcine) 0 unit 06/26/21 10:16 Heparin Sodium 1,000 Un/Ml (10ml Vl) IV PER PROTOCOL PRN Low PTT Protocol Sodium Chloride 1,000 mls @ 75 mls/hr 06/26/21 15:45 06/28/21 04:50 Saline 0.9% IV 75 mls/hr .[id number] F[facility]IOLA Administration Lorazepam 1 mg 06/27/21 12:40 06/28/21 04:45 Lorazepam 2 Mg/Ml Inj IV 1 mg Q2HR PRN Administration Anxiety Metoprolol Succinate 12.5 mg 06/26/21 12:15 06/27/21 07:43 Metoprolol Succinate (Er) 25 Mg Tab.Er.24h PO 12.5 mg DAILY FABIOLA Administration Miscellaneous Information 1 each 06/26/21 09:42 Rx Info: Iv Contrast Was Given 1 Each [facility] [place] [facility]CE[facility]ANE 06/28/21 09:43 DAILY PRN Per Protocol Miscellaneous Information 1 each 06/26/21 12:05 Rx Info: Iv Contrast Was Given 1 Each [facility] [place] MISCELLANE 06/28/21 12:05 DAILY PRN Per Protocol Nitroglycerin 0.4 mg 06/26/21 12:05 Nitroglycerin Sl Tabs 0.4 Mg Tab SUBLINGUAL Q5M PRN Chest Pain Ondansetron HCl 4 mg 06/27/21 12:46 06/28/21 03:49 Ondansetron 4 Mg/2 Ml Vial IVP 4 mg Q4HR PRN Administration Nausea And Vomiting Pantoprazole Sodium 40 mg 06/27/21 12:45 06/27/21 22:34 Pantoprazole 40 Mg/10 Ml Vial IVP 40 mg BID FABIOLA Administration Prasugrel 10 mg 06/27/21 09:00 06/27/21 07:43 Prasugrel 10 Mg Tab PO 10 mg DAILY FABIOLA Administration Temazepam 15 mg 06/26/21 16:53 Temazepam 15 Mg Cap PO HS PRN Insomnia Zolpidem Tartrate 5 mg 06/26/21 12:05 Zolpidem 5 Mg Tab PO HS PRN Insomnia Intake and Output 06/27/21 06/28/21 06/28/21 22:59 06:59 14:59 Intake Total 650 600 75 Output Total 600 200 0 Balance 50 400 75 Intake: IV 600 600 75 Sodium Chloride 0.9% 1, 600 600 75 000 ml @ 75 mls/hr IV . [id number] [facility] Rx#:[id number] Oral 50 Output: Urine 400 0 0 Emesis 200 200 Other: Voiding Method Toilet Toilet Weight 104.6 kg 06/27/21 03:47 06/27/21 03:47 Assessment and Plan Assessment: Assessment #1 acute coronary syndrome #2 drug abuse #3 hypertension #4 dyslipidemia Plan #1 continue dual antiplatelet therapy #2 continue high intensity statin #3 follow-up on the echocardiogram #4 consider adding small dose of QUE inhibitor based on the echocardiogram results #5 the patient can be transferred out of the intensive care unit
[2021-06-28] MEDS: ASPIRIN 81 MG PO SCH (09:22)
[2021-06-28] MEDS: PRASUGREL 10 MG TAB PO SCH (09:22)
[2021-06-28] MEDS: cloNIDine HCL 0.1 MG TAB PO SCH ×2 (09:23→20:16)
[2021-06-28] MEDS: ATORVASTATIN 80 MG TAB PO SCH (09:23)
[2021-06-28] MEDS: METOPROLOL SUCCINATE (ER) 25 MG TAB.ER.24H PO SCH (09:23)
[2021-06-28] MEDS: PANTOPRAZOLE 40 MG/10 ML VIAL IVP SCH (09:24)
[2021-06-28 10:29] VITALS: BMI 42.1
--- NOTE | 2021-06-28 11:48 | ECHOF ---
Referral Reason: MEASUREMENTS -------- HEIGHT: 157.5 cm WEIGHT: 106.6 kg BP: 137/79 RVIDd: 2.8 cm (< 3.3) IVSd: 1.4 cm (0.6 - 1.1) LVIDd: 4.9 cm (3.9 - 5.3) LVPWd: 1.4 cm (0.6 - 1.1) IVSs: 1.5 cm LVIDs: 3.7 cm LVPWs: 1.8 cm LAESV Index (A-L): 32.93 ml/m Ao Diam: 2.6 cm (2.0 - 3.7) AV Cusp: 1.7 cm (1.5 - 2.6) LA Diam: 3.9 cm (2.7 - 3.8) MV EXCURSION: 11.820 mm (> 18.000) MV EF SLOPE: 80 mm/s (70 - 150) EPSS: 1.1 cm MV E Jimmy: 1.28 m/s MV DecT: 241 ms MV A Jimmy: 0.62 m/s MV E/A Ratio: 2.08 RAP: 5.00 mmHg RVSP: 41.15 mmHg FINDINGS -------- Sinus rhythm. This was a technically adequate study. The left ventricular size is normal. There is moderate concentric left ventricular hypertrophy. O verall left ventricular systolic function is mild-moderately impaired with, an EF between 40 - 45 %. Mid anterior LV wall motion is hypokinetic. Mid anteroseptal LV wall motion is hypokinetic. A pical anterior LV wall motion is hypokinetic. Apical lateral LV wall motion is hypokinetic. Api juancarlos inferior LV wall motion is hypokinetic. Apical septum LV wall motion is hypokinetic. The right ventricle is normal in size. LA is midly dilated 29-33ml/m2. The right atrial size is normal. Interatrial and interventricular septum intact. The aortic valve is trileaflet, and appears structurally normal. No aortic stenosis or regurgitation. The mitral valve is normal. Mild mitral regurgitation is present. The tricuspid valve appears structurally normal. [id number] tricuspid regurgitation present. There is mild to moderate pulmonary hypertension. The right ventricular systolic pressure, as giovanni sured by Doppler, is 41.15mmHg. There is no pulmonic regurgitation present. The aortic root size is normal. IVC Not well visulized. There is no pericardial effusion. CONCLUSIONS -------- 1. There is moderate concentric left ventricular hypertrophy. 2. Overall left ventricular systolic function is mild-moderately impaired with, an EF between 40 - 45 %. 3. Mid anterior LV wall motion is hypokinetic. 4. Mid anteroseptal LV wall motion is hypokinetic. 5. Apical anterior LV wall motion is hypokinetic. 6. Apical lateral LV wall motion is hypokinetic. 7. Apical inferior LV wall motion is hypokinetic. 8. Apical septum LV wall motion is hypokinetic. 9. LA is midly dilated 29-33ml/m2. 10. The aortic valve is trileaflet, and appears structurally normal. No aortic stenosis or regurgitat ion. 11. Mild mitral regurgitation is present. 12. Mwsy-ty-jvqiwtpp tricuspid regurgitation present. 13. There is mild to moderate pulmonary hypertension. 14. There is no pericardial effusion. DIAL BRUSHER: Elva Green RDCS
--- NOTE | 2021-06-28 16:30 | PN ---
PROGRESS NOTE DATE OF SERVICE: 06/28/2021 This 35 -year-old woman admitted with acute myocardial infarction also had significant substance abuse issues. No chest pain. No palpitations. Patient has significant withdrawals. PHYSICAL EXAMINATION: Alert and oriented times three. Pulse is 60. Blood pressure 132/74, respirations 12. Temperature 98.1, pulse ox 98% on room air. HEENT: Conjunctivae normal. NECK: No JVD. CARDIOVASCULAR: S1, S2 muffled. RESPIRATORY SYSTEM: Breath sounds diminished at the bases. A few scattered rhonchi. ABDOMEN: Soft. Nervous System: No focal deficits. LABS: CBC within normal limits, otherwise is 29. Covid 19 is negative. ASSESSMENT: 1. Acute ST-segment elevation myocardial infarction status post cardiac catheterization, stenting of the LAD. 2. Troponin elevated up to 2.96. 3. Polysubstance abuse and active drug withdrawal symptoms. 4. Family history of premature coronary artery disease. 5. History of nicotine dependence. 6. History of asthma. 7. Heart murmur as a child. 8. Suboxone and Kratom usage recently. 9. History of cholecystectomy. 10.History of section. 11.History of anxiety, depression. 12.Obesity with body mass index of 41.9. 13.FULL CODE. RECOMMENDATIONS AND DISCUSSION: Continue current medications, management and symptomatic treatment. Continue the beta blockers. Continue with Continue Ativan p.r.n. Prognosis guarded because of multiple complex medical issues. Further recommendations to follow. MMODL / IJN: [id number] / KIMANI
[2021-06-28] MEDS: PANTOPRAZOLE 40 MG TABLET PO SCH (17:42)
[2021-06-29 02:00] VITALS: RESP 18
[2021-06-29] MEDS: SODIUM CHLORIDE 0.9% 1,000 ML IV SCH (02:12)
[2021-06-29] MEDS: PANTOPRAZOLE 40 MG TABLET PO SCH (06:20)
[2021-06-29] MEDS: ONDANSETRON 4 MG/2 ML VIAL IVP PRN (07:57)
[2021-06-29] MEDS: PRASUGREL 10 MG TAB PO SCH (08:07)
[2021-06-29] MEDS: ASPIRIN 81 MG PO SCH (08:07)
[2021-06-29] MEDS: METOPROLOL SUCCINATE (ER) 25 MG TAB.ER.24H PO SCH (08:07)
[2021-06-29] MEDS: ATORVASTATIN 80 MG TAB PO SCH (08:07)
[2021-06-29] MEDS: cloNIDine HCL 0.1 MG TAB PO SCH (08:11)
[2021-06-29 08:27] LABS: Basophils # (A) 0.1 k/uL (0-0.2); Basophils % (A) 0 %; Eosinophils # (A) 0.1 k/uL (0-0.7); Eosinophils % (A) 1 %; HCT 35.1 % (34.0-46.0); HGB 11.4 gm/dL (11.4-16.0); Lymphocytes # (A) 2.5 k/uL (1.0-4.8); Lymphocytes % (A) 23 %; MCH 28.1 pg (25.0-35.0); MCHC 32.6 g/dL (31.0-37.0); MCV 86.2 fL (80.0-100.0); Mean Platelet Volume 8.1; Monocytes # (A) 0.6 k/uL (0-1.0); Monocytes % (A) 6 %; Neutrophils # (A) 7.7 k/uL (1.3-7.7); Neutrophils % (A) 69 %; Platelet Count 264 k/uL (150-450); RBC 4.07 m/uL (3.80-5.40); RDW 14.8 % (11.5-15.5); WBC 11.2 k/uL (3.8-10.6)
--- NOTE | 2021-06-29 08:44 | P.PN ---
Subjective Progress Note Date: 06/29/21 Principal diagnosis: Acute coronary syndrome This is a 35-year-old female patient who was admitted to the hospital with chest discomfort and was diagnosed with acute coronary syndrome be she underwent a heart catheterization and stenting of the LAD. The patient was seen this morning she is chest pain-free. No shortness of breath she has been experiencing a dry cough. She denies any dizziness or lightheadedness or any feeling of heart racing or fluttering. Hemodynamically she is stable. The echo revealed mildly impaired only function was EF between 40-45%. She is on dual antiplatelet therapy along with high intensity statin. From the cardiac standpoint of view, the patient can be discharged home Objective - Vital Signs Vital signs: Vital Signs Temp 98.4 F 06/29/21 04:00 Pulse 58 L 06/29/21 04:00 Resp 18 06/29/21 04:00 BP 124/74 06/29/21 04:00 Pulse Ox 95 06/29/21 04:00 Intake & Output 06/28/21 06/29/21 06/29/21 18:59 06:59 18:59 Intake Total 950 705 Output Total 825 350 Balance 125 355 Weight 104.6 kg Intake: IV 900 Sodium Chloride 0.9% 1, 900 000 ml @ 75 mls/hr IV . [id number] FABIOLA Rx#:[id number] Intake, IV Titration 225 Amount Sodium Chloride 0.9% 1, 225 000 ml @ 75 mls/hr IV . [id number] FABIOLA Rx#:[id number] Oral 50 480 Output: Urine 800 350 Emesis 25 Other: Voiding Method Toilet Toilet # Voids 1 1 - Constitutional General appearance: Present: no acute distress - Respiratory Respiratory: bilateral: CTA - Cardiovascular Rhythm: regular Heart sounds: normal: S1, S2 Abnormal Heart Sounds: Present: systolic murmur - Labs CBC & Chem 7: 06/29/21 07:59 06/27/21 03:47 Labs: Abnormal Lab Results - Last 24 Hours (Table) 06/29/21 Range/Units 07:59 WBC 11.2 H (3.8-10.6) k/uL Assessment and Plan Assessment: Assessment #1 acute coronary syndrome #2 drug abuse #3 hypertension #4 dyslipidemia Plan #1 continue dual antiplatelet therapy #2 continue high intensity statin #3 follow-up on the echocardiogram #4 the patient can be discharged home
[2021-06-29 08:52] LABS: ALT 26 U/L (4-34); AST 34 U/L (14-36); African American GFR (CKD) >90 (>60 ml/min/1.73 sqM); Albumin 3.4 g/dL (3.5-5.0); Alkaline Phosphatase 93 U/L (38-126); Anion Gap 7 mmol/L; Blood Urea Nitrogen 11 mg/dL (7-17); Calcium 9.2 mg/dL (8.4-10.2); Carbon Dioxide 22 mmol/L (22-30); Chloride 111 mmol/L (98-107); Glucose 101 mg/dL (74-99); Non-African American GFR(CKD) >90 (>60 ml/min/1.73 sqM); Potassium 3.8 mmol/L (3.5-5.1); Sodium 140 mmol/L (137-145); Total Bilirubin 0.4 mg/dL (0.2-1.3)
[2021-06-29 11:17] VITALS: BP 119/71; PULSE 52; TEMP 98.5
--- NOTE | 2021-06-29 19:56 | DS ---
DISCHARGE SUMMARY DATE OF SERVICE: 06/29/2021 FINAL DIAGNOSES: 1. Acute ST-segment elevation myocardial infarction status post cardiac arrest and stenting of the LAD. 2. Troponin elevated up to 2.96. 3. Polysubstance abuse and as well as acute drug withdrawal symptoms. 4. Family history of premature coronary artery disease. 5. History of nicotine dependence. 6. History of asthma. 7. Heart murmur as a child. 8. Suboxone and Kratom usage recently. 9. History of cholecystectomy. 10.History of section. 11.History of anxiety, depression. 12.Obesity with body mass index of 41.8. 13.FULL CODE. DISCHARGE DISPOSITION: The patient will be discharged in stable condition with guarded prognosis. HISTORY OF PRESENT ILLNESS: This is a 35 -year-old woman with a past medical history of multiple medical problems admitted with acute ST-segment elevation myocardial infarction. Patient had cardiac cath and stenting as mentioned earlier. Patient also had withdrawal syndrome also for possibly polysubstance abuse. Patient was using street Suboxone and as well as Kratom recently. The patient was treated conservatively. Patient improved significantly. On exam, vitals signs stable. Cardiovascular S1, S2. Abdomen soft. Nervous system: No focal deficits. DISCHARGE ADVICE AND MEDICATIONS: 1. Diet is cardiac diet. 2. Activity limited until followup. 3. Follow up with Dr. Tinoco in 2-3 days. 4. 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 5. Follow up with [facility] as recommended. DISCHARGE MEDICATIONS: 1. Albuterol p.r.n. 2. Aspirin 81 mg daily. 3. Catapres 0.1 mg p.o. b.i.d. for 2 weeks. 4. Effient 10 mg p.o. daily. 5. Lipitor 80 mg p.o. daily. 6. Nitrostat 0.4 sublingually p.r.n. 7. Protonix 40 mg daily. 8. Toprol-XL 12.5 mg daily. 9. Zofran 4 mg p.r.n. Once again, the patient discharged in stable condition with guarded prognosis. MMODL / IJN: [id number] /
== END 2021-06-29 12:16 | disposition home or self-care (01) | DRG 246 ==
LOC: EC 07:59 → 2SICU 11:00 → 3SCARD 06-28 18:31
PROVIDERS: ADMIT Hospitalist; ATTEND Hospitalist
PROC: 027034Z Dilation of Coronary Artery, One Artery with Drug-eluting Intraluminal Device, Percutaneous Approach (ICD-10-PCS; principal; 2021-06-26 10:39)
PROC: 4A023N7 Measurement of Cardiac Sampling and Pressure, Left Heart, Percutaneous Approach (ICD-10-PCS; principal; 2021-06-26 10:39)
PROC: B2111ZZ Fluoroscopy of Multiple Coronary Arteries using Low Osmolar Contrast (ICD-10-PCS; principal; 2021-06-26 10:39)
PROC: 02C03ZZ Extirpation of Matter from Coronary Artery, One Artery, Percutaneous Approach (ICD-10-PCS; principal; 2021-06-26 10:39)
DX: I21.4 Non-ST elevation (NSTEMI) myocardial infarction (principal); I46.2 Cardiac arrest due to underlying cardiac condition; Z68.41 Body mass index [BMI] 40.0-44.9, adult; F11.23 Opioid dependence with withdrawal; E66.9 Obesity, unspecified; Z20.822 Contact with and (suspected) exposure to COVID-19; I10 Essential (primary) hypertension; E78.5 Hyperlipidemia, unspecified; R00.1 Bradycardia, unspecified; I25.10 Atherosclerotic heart disease of native coronary artery without angina pectoris; J45.909 Unspecified asthma, uncomplicated; F15.90 Other stimulant use, unspecified, uncomplicated; F14.11 Cocaine abuse, in remission; F17.210 Nicotine dependence, cigarettes, uncomplicated; Z71.6 Tobacco abuse counseling; Z98.891 History of uterine scar from previous surgery; Z87.19 Personal history of other diseases of the digestive system; Z90.49 Acquired absence of other specified parts of digestive tract; Z86.59 Personal history of other mental and behavioral disorders; Z98.890 Other specified postprocedural states; Z71.3 Dietary counseling and surveillance; Z88.5 Allergy status to narcotic agent; Z88.0 Allergy status to penicillin; Z82.49 Family history of ischemic heart disease and other diseases of the circulatory system; Z83.1 Family history of other infectious and parasitic diseases
CPT/HCPCS: 36415; 71045; 71046; 71275; 80048; 80053; 80061; 80306; 83735; 84484; 84703; 85025; 85379; 85610; 85730; 87635; 93005; 93306; 93458; 94640; 94760; 96365; 96366; 96374; 96375; 99285

== ENCOUNTER 2021-07-03 22:16 | Emergency (ER) | payer OTHER ==
--- NOTE | 2021-07-04 00:20 | ED ---
Upper Extremity HPI - General Chief Complaint: Extremity Injury, Upper Stated Complaint: S/P stent injury Time Seen by Provider: 07/03/21 23:27 Source: patient Mode of arrival: ambulatory Limitations: no limitations - History of Present Illness Initial Comments: 35-year-old female presents to emergency Department with a chief complaint of right arm pain. Patient reports she had a cardiac catheterization performed with right radial access about 1.5 weeks ago with stent placement. Patient states she was discharged on blood thinners and today she accidentally hit her arm in the right forearm region and now she has developed ecchymosis and swelling but denies any associated erythema. States he feels like a pressure throughout the whole forearm. She denies any significant tenderness at the radial access site. She denies any chest pain or shortness of breath. Denies any fevers or chills. - Related Data Home Medications Medication Instructions Recorded Confirmed Albuterol Sulfate [Proair Hfa] 2 puff INHALATION RT-QID PRN 06/26/21 06/26/21 Previous Rx's Medication Instructions Recorded Aspirin 81 mg PO DAILY #30 tab 06/29/21 Atorvastatin [Lipitor] 80 mg PO DAILY #30 tab 06/29/21 Metoprolol Succinate (ER) [Toprol 12.5 mg PO DAILY 30 Days #15 tablet 06/29/21 XL] Nitroglycerin Sl Tabs [Nitrostat] 0.4 mg SUBLINGUAL Q5M PRN #30 tab 06/29/21 Ondansetron Odt [Zofran Odt] 4 mg PO Q8HR PRN #20 tab 06/29/21 Pantoprazole [Protonix] 40 mg PO AC-BID #30 tab 06/29/21 Prasugrel [Effient] 10 mg PO DAILY 30 Days #30 tab 06/29/21 cloNIDine HCL [Catapres] 0.1 mg PO BID 7 Days #14 tab 06/29/21 Allergies Allergy/AdvReac Type Severity Reaction Status Date / Time codeine AdvReac Mild Abdominal Verified 07/04/21 12:43 Pain amoxicillin AdvReac DOES NOT Verified 07/04/21 12:43 WORK Review of Systems ROS Statement: Those systems with pertinent positive or pertinent negative responses have been documented in the HPI. ROS Other: All systems not noted in ROS Statement are negative. Past Medical History Past Medical History: Asthma, Myocardial Infarction ([place]) Additional Past Medical History / Comment(s): heart murmur as a child History of Any Multi-Drug Resistant Organisms: None Reported Past Surgical History: Section, Cholecystectomy, Heart Catheterization With Stent Additional Past Surgical History / Comment(s): clamp on liver due to "liver bleed during gall bladder surgery" Past Anesthesia/Blood Transfusion Reactions: Previous Problems w/ Anesthesia Additional Past Anesthesia/Blood Transfusion Reaction / Comment(s): "freaked out when coming out and jumped off stretcher" Past Psychological History: Anxiety, Depression Smoking Status: Current every day smoker Past Alcohol Use History: None Reported Past Drug Use History: None Reported - Past Family History Father Family Medical History: No Reported History General Exam Limitations: no limitations General appearance: alert, in no apparent distress Head exam: Present: atraumatic, normocephalic, normal inspection Eye exam: Present: normal appearance, PERRL, EOMI Pupils: Present: normal accommodation ENT exam: Present: normal exam, normal oropharynx, mucous membranes moist Neck exam: Present: normal inspection, full ROM Respiratory exam: Present: normal lung sounds bilaterally. Absent: respiratory distress Cardiovascular Exam: Present: regular rate, normal rhythm, systolic murmur Extremities exam: Present: full ROM, tenderness (Tenderness at the injury site), normal capillary refill. Absent: normal inspection (Mild swelling and ecchymosis on the right forearm. Radial access site appears to be well and right arm.), pedal edema, joint swelling Back exam: Present: normal inspection, full ROM. Absent: tenderness Neurological exam: Present: alert, oriented X3 Psychiatric exam: Present: normal affect, normal mood Skin exam: Present: warm, dry, intact, normal color Course Vital Signs 07/03/21 07/04/21 22:18 02:03 Temperature 99.0 F 98.9 F Pulse Rate 75 77 Respiratory 20 18 Rate Blood Pressure 141/69 137/64 O2 Sat by Pulse 99 99 Oximetry Medical Decision Making - Medical Decision Making 35-year-old female presents to emergency department with a chief complaint of right arm injury. On Physical examination, she has swelling but no erythema with mild region of ecchymosis of the right forearm. Radial access site appears to be well. Ultrasound of the right forearm shows no signs of DVT or pseudoaneurysm. Patient advised to continue compresses to the region to alleviate the symptoms. She does not any chest pain or shortness of breath. Return parameters were discussed with patient attending agreeable. Disposition Clinical Impression: Arm swelling, Arm injury Disposition: HOME SELF-CARE Condition: Stable Instructions (If sedation given, give patient instructions): Hematoma (ED) Additional Instructions: Please return to the Emergency Department if symptoms worsen or any other concerns. Is patient prescribed a controlled substance at d/c from ED?: No Referrals: None,Stated [Primary Care Provider] - 1-2 days Time of Disposition: 01:19
--- NOTE | 2021-07-04 01:08 | US ---
EXAMINATION TYPE: US venous doppler duplex UE RT DATE OF EXAM: 07/04/2021 COMPARISON: NONE CLINICAL HISTORY: recent cath, pain in arm. pain and edema right arm. palpable right lower arm. patie nt on blood thinner SIDE PERFORMED: right Right Arm: no evidence of DVT. Scanned within area of palpable, right lower arm, no distinct abnormal ity by ultrasound at this time IMPRESSION: No evidence of deep vein thrombosis in the right arm. No pathologic fluid collection.
[2021-07-04 02:05] VITALS: BP 137/64; PULSE 77; RESP 18; TEMP 98.9
== END 2021-07-04 02:04 | disposition home or self-care (01) ==
LOC: EC 22:16
DX: S49.91XA Unspecified injury of right shoulder and upper arm, initial encounter (principal); F17.200 Nicotine dependence, unspecified, uncomplicated; J45.909 Unspecified asthma, uncomplicated; I25.2 Old myocardial infarction; Z88.6 Allergy status to analgesic agent; Z88.0 Allergy status to penicillin; W22.8XXA Striking against or struck by other objects, initial encounter
CPT/HCPCS: 99283

== ENCOUNTER 2021-07-04 12:29 | Emergency (ER) | payer OTHER ==
[2021-07-04 12:43] VITALS: RESP 18; TEMP 98.8
--- NOTE | 2021-07-04 13:08 | ED ---
Chest Pain HPI - General Chief Complaint: Chest Pain Stated Complaint: revisit - chest pain Time Seen by Provider: 07/04/21 12:51 Source: patient Mode of arrival: ambulatory Limitations: no limitations - History of Present Illness Initial Comments: Patient complains of chest pain. Pain is in the middle of the chest. It doesn't radiate into her. Nothing makes it better or worse. She has taken no medicines. She had an TX 5 days ago and received one stent in her heart. She wasn't doing anything when the pain began today. She has had no sick contacts. She has no palpitations. She has no lightheadedness or dizziness. She also thinks she might have a UTI. - Related Data Home Medications Medication Instructions Recorded Confirmed Albuterol Sulfate [Proair Hfa] 2 puff INHALATION RT-QID PRN 06/26/21 07/04/21 Nitrofurantoin Monohyd/M-Cryst 100 mg PO Q12H 07/04/21 07/04/21 [Macrobid] Previous Rx's Medication Instructions Recorded Aspirin 81 mg PO DAILY #30 tab 06/29/21 Atorvastatin [Lipitor] 80 mg PO DAILY #30 tab 06/29/21 Metoprolol Succinate (ER) [Toprol 12.5 mg PO DAILY 30 Days #15 tablet 06/29/21 XL] Nitroglycerin Sl Tabs [Nitrostat] 0.4 mg SUBLINGUAL Q5M PRN #30 tab 06/29/21 Ondansetron Odt [Zofran Odt] 4 mg PO Q8HR PRN #20 tab 06/29/21 Pantoprazole [Protonix] 40 mg PO AC-BID #30 tab 06/29/21 Prasugrel [Effient] 10 mg PO DAILY 30 Days #30 tab 06/29/21 cloNIDine HCL [Catapres] 0.1 mg PO BID 7 Days #14 tab 06/29/21 Allergies Allergy/AdvReac Type Severity Reaction Status Date / Time codeine AdvReac Mild Abdominal Verified 07/04/21 17:34 Pain amoxicillin AdvReac DOES NOT Verified 07/04/21 17:34 WORK Review of Systems ROS Statement: Those systems with pertinent positive or pertinent negative responses have been documented in the HPI. ROS Other: All systems not noted in ROS Statement are negative. EKG Findings - EKG Comments: EKG Findings:: Twelve-lead EKG shows ventricular rate 73 bpm, normal CT interval and Jose complexes, she does have T-wave inversions in the lateral leads. Interpreted by me as normal sinus rhythm. Past Medical History Past Medical History: Asthma, Myocardial Infarction ([place]) Additional Past Medical History / Comment(s): heart murmur as a child History of Any Multi-Drug Resistant Organisms: None Reported Past Surgical History: Section, Cholecystectomy, Heart Catheterization With Stent Additional Past Surgical History / Comment(s): clamp on liver due to "liver bleed during gall bladder surgery" Past Anesthesia/Blood Transfusion Reactions: Previous Problems w/ Anesthesia Additional Past Anesthesia/Blood Transfusion Reaction / Comment(s): "freaked out when coming out and jumped off stretcher" Past Psychological History: Anxiety, Depression Smoking Status: Current every day smoker Past Alcohol Use History: None Reported Past Drug Use History: None Reported - Past Family History Father Family Medical History: No Reported History General Exam Limitations: no limitations General appearance: alert, in no apparent distress Head exam: Present: atraumatic, normocephalic, normal inspection Eye exam: Present: normal appearance, PERRL, EOMI. Absent: scleral icterus, conjunctival injection, periorbital swelling ENT exam: Present: normal exam, mucous membranes moist Neck exam: Present: normal inspection. Absent: tenderness, meningismus, lymphadenopathy Respiratory exam: Present: normal lung sounds bilaterally. Absent: respiratory distress, wheezes, rales, rhonchi, stridor Cardiovascular Exam: Present: regular rate, normal rhythm, normal heart sounds. Absent: systolic murmur, diastolic murmur, rubs, gallop, clicks GI/Abdominal exam: Present: soft, normal bowel sounds. Absent: distended, tenderness, guarding, rebound, rigid Extremities exam: Present: normal inspection, full ROM, normal capillary refill. Absent: tenderness, pedal edema, joint swelling, calf tenderness Back exam: Present: normal inspection Neurological exam: Present: alert, oriented X3, CN II-XII intact Psychiatric exam: Present: normal affect, normal mood Skin exam: Present: warm, dry, intact, normal color. Absent: rash Course Vital Signs 07/04/21 12:40 Temperature 98.8 F Pulse Rate 73 Respiratory 18 Rate Blood Pressure 124/74 O2 Sat by Pulse 97 Oximetry Chest Pain MDM - [facility] Patient presented with chest pain. She had an TX a few days ago. Initial troponin is elevated. Repeat troponin is down trending. I advised the patient that she requires admission to the hospital and cardiology consult. She does not want to stay in the hospital. She would like to leave AMA. Disposition Clinical Impression: Chest pain Disposition: Left Against Medical Advice Condition: Good Instructions (If sedation given, give patient instructions): Chest Pain (ED) Is patient prescribed a controlled substance at d/c from ED?: No Referrals: None,Stated [Primary Care Provider] - 1-2 days
--- NOTE | 2021-07-04 13:31 | XR ---
EXAMINATION TYPE: XR chest 2V DATE OF EXAM: 07/04/2021 COMPARISON: 06/27/2021 HISTORY: Chest pain TECHNIQUE: Frontal and lateral views of the chest are obtained. FINDINGS: There is no focal air space opacity, pleural effusion, or pneumothorax seen. The cardiac silhouette size is within normal limits. The osseous structures are intact. IMPRESSION: No acute cardiopulmonary process.
[2021-07-04 13:51] LABS: Basophils # (A) 0.1 k/uL (0-0.2); Basophils % (A) 1 %; Eosinophils # (A) 0.2 k/uL (0-0.7); Eosinophils % (A) 2 %; HCT 41.2 % (34.0-46.0); HGB 13.1 gm/dL (11.4-16.0); Lymphocytes # (A) 2.7 k/uL (1.0-4.8); Lymphocytes % (A) 22 %; MCH 26.9 pg (25.0-35.0); MCHC 31.9 g/dL (31.0-37.0); MCV 84.2 fL (80.0-100.0); Mean Platelet Volume 8.6; Monocytes # (A) 0.7 k/uL (0-1.0); Monocytes % (A) 6 %; Neutrophils # (A) 8.2 k/uL (1.3-7.7); Neutrophils % (A) 68 %; Platelet Count 372 k/uL (150-450); RBC 4.89 m/uL (3.80-5.40); RDW 14.8 % (11.5-15.5); WBC 12.2 k/uL (3.8-10.6)
[2021-07-04 13:56] LABS: Partial Thromboplastin Time 23.8 sec (22.0-30.0); Prothrombin Time 10.9 sec (9.0-12.0)
[2021-07-04 14:02] LABS: ALT 24 U/L (4-34); AST 33 U/L (14-36); African American GFR (CKD) >90 (>60 ml/min/1.73 sqM); Albumin 4.2 g/dL (3.5-5.0); Alkaline Phosphatase 86 U/L (38-126); Anion Gap 10 mmol/L; Blood Urea Nitrogen 4 mg/dL (7-17); Calcium 9.9 mg/dL (8.4-10.2); Carbon Dioxide 21 mmol/L (22-30); Chloride 109 mmol/L (98-107); Glucose 86 mg/dL (74-99); Magnesium 1.9 mg/dL (1.6-2.3); Non-African American GFR(CKD) >90 (>60 ml/min/1.73 sqM); Sodium 140 mmol/L (137-145); Total Bilirubin 0.6 mg/dL (0.2-1.3); Total Protein 7.1 g/dL (6.3-8.2)
[2021-07-04 14:13] LABS: Potassium 4.9 mmol/L (3.5-5.1)
[2021-07-04] MEDS ORDERED: HEPARIN SODIUM 1,000 UN/ML (10ML VL) IV PRN (14:52)
[2021-07-04] MEDS ORDERED: ACETAMINOPHEN TAB 500 MG TAB PO PRN (14:52)
[2021-07-04] MEDS ORDERED: ALPRAZolam 0.25 MG TAB PO PRN (14:52)
[2021-07-04] MEDS ORDERED: HEPARIN SOD,PORK IN 0.45% NACL 25,000 UNIT in 0.45% NACL 1 250ML.BAG IV SCH (15:00)
[2021-07-04] MEDS ORDERED: NICOTINE 14MG/24HR PATCH TRANSDERM SCH (15:00)
[2021-07-04 15:55] LABS: Appearance,Urine Clear (Clear); Bilirubin,Urine Negative (Negative); Blood,Urine Negative (Negative); Color,Urine Yellow; Glucose,Urine (UA) Negative (Negative); Ketones,Urine Negative (Negative); Leukocyte Esterase,Urine Negative (Negative); Nitrite,Urine Negative (Negative); Protein,Urine Negative (Negative); Specific Gravity,Urine 1.004 (1.001-1.035); Urobilinogen,Urine <2.0 mg/dL (<2.0)
--- NOTE | 2021-07-04 17:58 | HP ---
HISTORY AND PHYSICAL DATE OF SERVICE: 07/04/2021. CHIEF COMPLAINT: Chest pain. HISTORY OF PRESENT ILLNESS: This 35-year-old woman with a past medical history of multiple medical problems, including history of asthma, history of myocardial infarction, history of cholecystectomy, history of anxiety, depression, being followed by Dr. Tinoco in the outpatient setting, was recently admitted with acute myocardial infarction. Cardiac cath showed LAD lesions and stent was placed. The patient apparently is taking multiple medications and substances at home, including kratom. The patient did go through an episode of withdrawal while in the hospital, which was treated symptomatically. After going home the patient reports that she was smoking about 5 cigarettes per day. There is no history of any fever, rigor or chills. Patient had epigastric discomfort this morning and the patient came to [facility] and was admitted for evaluation and treatment. The EKG which I reviewed personally showed diffuse ST-T changes and chest x-ray showed no acute abnormality. The patient was admitted for evaluation and treatment. The troponin was found to be elevated at 0.078, but probably the trailing edge of the elevated troponin because of the recent non-ST- segment-elevation myocardial infarction. There is no history of any fever, rigor or chills at this time. PAST MEDICAL HISTORY: Asthma, recent myocardial infarction, stent, anxiety, depression, nicotine dependence. MEDICATIONS: Medications prior to admission include clonidine 0.1 p.o. b.i.d., Effient, Protonix, Zofran, Nitrostat, Toprol XL, Lipitor, aspirin, ProAir. Doses are reviewed. ALLERGIES: CODEINE, AMOXICILLIN. FAMILY HISTORY: No history of heart disease or strokes in the family. SOCIAL HISTORY: History of smoking. History of THC. REVIEW OF SYSTEMS: ENT: No diminished hearing. No diminished vision. CARDIOVASCULAR SYSTEM: As mentioned earlier. RESPIRATORY SYSTEM: As mentioned earlier. GI: No nausea, vomiting, diarrhea. : No dysuria. NERVOUS SYSTEM: No numbness, weakness. ALLERGY/IMMUNOLOGY: No asthma or hay fever. MUSCULOSKELETAL: As mentioned earlier. HEMATOLOGY/ONCOLOGY: No history of anemia. ENDOCRINE: No history of diabetes or hypothyroidism. CONSTITUTIONAL: As mentioned earlier. DERMATOLOGY: Negative. RHEUMATOLOGY: Negative. PSYCHIATRY: As mentioned earlier. PHYSICAL EXAMINATION: Patient alert and oriented x3. Pulse 73, blood pressure 124/74, respiration 18, temperature 98.8, pulse ox 97% on room air. HEENT: Conjunctivae normal. Oral mucosa moist. NECK: No jugular venous distention. No carotid bruit. No lymph node enlargement. CARDIOVASCULAR: S1, S2 muffled. RESPIRATION: Breath sounds diminished at the bases. No rhonchi. No crackles. ABDOMEN: Soft, nontender. No mass palpable. LEGS: No edema. No swelling. NERVOUS SYSTEM: Higher functions as mentioned earlier. Moves all 4 limbs. No focal motor or sensory deficit. LYMPHATICS: No lymph node palpable in neck, axillae or groin. SKIN: No ulcer, rash, bleeding. JOINTS: No active deforming arthropathy. LAB STUDIES: WBC 12.2, hemoglobin 13.1. Sodium 140, potassium 4.9. Troponin noted. ASSESSMENT: 1. Chest pain, possible unstable angina. 2. History of recent [id number]-gegcezh-elevation myocardial infarction and LAD stenting. 3. Increased white count. 4. Continued ongoing nicotine dependence. 5. Troponin 0.078. 6. History of asthma. 7. History of myocardial infarction. 8. History of cholecystectomy. 9. History of section. 10.History of anxiety, depression. 11.History of nicotine dependence. 12.History of polysubstance abuse, recently on Suboxone and kratom usage. 13.Obesity with body mass index 41. RECOMMENDATIONS AND DISCUSSION: In this 35-year-old woman who presented with multiple complex medical issues, we will monitor the patient closely, continue the current medications, continue symptomatic treatment. Will initiate unstable angina protocol. Cardiology consultation. IV heparin. Guarded prognosis because of multiple complex medical issues. Resume the home medications. Prognosis guarded. Further recommendations to follow. A copy of this dictation is being forwarded to Dr. Tinoco, who is the primary physician. MMODL / IJN: [id number] /
[2021-07-04 18:19] VITALS: BP 128/87; PULSE 80
[2021-07-05] MEDS ORDERED: PANTOPRAZOLE 40 MG TABLET PO SCH (07:30)
== END 2021-07-04 18:19 | disposition left against medical advice (07) ==
LOC: EC 12:29
DX: R07.89 Other chest pain (principal); E66.9 Obesity, unspecified; D72.829 Elevated white blood cell count, unspecified; J45.909 Unspecified asthma, uncomplicated; F17.210 Nicotine dependence, cigarettes, uncomplicated; I25.2 Old myocardial infarction; Z68.41 Body mass index [BMI] 40.0-44.9, adult; Z88.0 Allergy status to penicillin; Z79.899 Other long term (current) drug therapy; Z88.5 Allergy status to narcotic agent; Z95.5 Presence of coronary angioplasty implant and graft
CPT/HCPCS: 99285; 96365; 96366; 36415; 93005; 83880; 80053; 83735; 84484; 85025; 85610; 85730; 81003; 71046; J1644

== ENCOUNTER 2022-09-30 23:22 | Emergency (ER) | payer OTHER ==
[2022-09-30 23:28] VITALS: TEMP 98.9
[2022-09-30] MEDS ORDERED: ASPIRIN 81 MG PO STA (23:40)
--- NOTE | 2022-09-30 23:45 | ED ---
Chest Pain HPI - General Chief Complaint: Chest Pain Stated Complaint: Chest Pain, High Blood Pressure Time Seen by Provider: 09/30/22 23:31 Source: patient, RN notes reviewed Mode of arrival: ambulatory Limitations: no limitations - History of Present Illness Initial Comments: This is a pleasant 36-year-old female with a history of cardiovascular disease with previous stenting [place] [address] Blackwood. She presents to the emergency department today complaining of dull chest pain which started about 1.5 hours ago. No alleviating or exacerbating factors. Unrelated to activity. It radiates through to the back. States the pain is actually resolved. Patient did have some mild nausea and sensation of mild shortness of breath. No diaphoresis. Patient states that she recently had cardiac testing at Dr. Blackwood's office about one month ago. She had a cardiac stress test and an echocardiogram. She has yet to receive the results of those tests. Patient continues to smoke cigarettes. Patient has a history of illicit drug abuse to include Suboxone, Kratum, and methamphetamine. Patient states she has been off those for a few years. Denies chance of . Previously has had a cholecystectomy. No headache, no fever or chills, no changes in vision or hearing, no sore throat or difficulty with speech, no neck pain, , no abdominal pain, no nausea or vomiting, no changes in urination or bowel movements, no numbness or tingling, no extremity pain, no skin rashes or lesions. Past medical, surgical, social, and family history reviewed. - Related Data Home Medications Medication Instructions Recorded Confirmed Albuterol Sulfate [Proair Hfa] 2 puff INHALATION RT-QID PRN 06/26/21 07/04/21 Nitrofurantoin Monohyd/M-Cryst 100 mg PO Q12H 07/04/21 07/04/21 [Macrobid] Previous Rx's Medication Instructions Recorded Aspirin 81 mg PO DAILY #30 tab 06/29/21 Atorvastatin [Lipitor] 80 mg PO DAILY #30 tab 06/29/21 Metoprolol Succinate (ER) [Toprol 12.5 mg PO DAILY 30 Days #15 tablet 06/29/21 XL] Nitroglycerin Sl Tabs [Nitrostat] 0.4 mg SUBLINGUAL Q5M PRN #30 tab 06/29/21 Ondansetron Odt [Zofran Odt] 4 mg PO Q8HR PRN #20 tab 06/29/21 Pantoprazole [Protonix] 40 mg PO AC-BID #30 tab 06/29/21 Prasugrel [Effient] 10 mg PO DAILY 30 Days #30 tab 06/29/21 cloNIDine HCL [Catapres] 0.1 mg PO BID 7 Days #14 tab 06/29/21 Allergies Allergy/AdvReac Type Severity Reaction Status Date / Time codeine AdvReac Mild Abdominal Verified 09/30/22 23:24 Pain amoxicillin AdvReac DOES NOT Verified 09/30/22 23:24 WORK Review of Systems ROS Statement: Those systems with pertinent positive or pertinent negative responses have been documented in the HPI. ROS Other: All systems not noted in ROS Statement are negative. Past Medical History Past Medical History: Asthma, Myocardial Infarction ([place]) Additional Past Medical History / Comment(s): heart murmur as a child History of Any Multi-Drug Resistant Organisms: None Reported Past Surgical History: Section, Cholecystectomy, Heart Catheterization With Stent Additional Past Surgical History / Comment(s): clamp on liver due to "liver bleed during gall bladder surgery" Past Anesthesia/Blood Transfusion Reactions: Previous Problems w/ Anesthesia Additional Past Anesthesia/Blood Transfusion Reaction / Comment(s): "freaked out when coming out and jumped off stretcher" Past Psychological History: Anxiety, Depression Smoking Status: Current every day smoker Past Alcohol Use History: None Reported Past Drug Use History: None Reported - Past Family History Father Family Medical History: No Reported History General Exam - General Exam Comments Initial Comments: Patient does not appear to be ill or toxic. Patient in no significant distress. Cranial nerves II through XII grossly intact. Capillary refill is normal. No mottling Limitations: no limitations General appearance: alert, in no apparent distress Head exam: Present: atraumatic, normocephalic, normal inspection Eye exam: Present: normal appearance, PERRL, EOMI. Absent: scleral icterus, conjunctival injection, periorbital swelling ENT exam: Present: normal exam, mucous membranes moist. Absent: normal oropharynx, mucous membranes dry, TM's normal bilaterally, normal external ear exam Neck exam: Present: normal inspection, full ROM. Absent: tenderness, meningismus, lymphadenopathy Respiratory exam: Present: normal lung sounds bilaterally. Absent: respiratory distress, wheezes, rales, rhonchi, stridor, chest wall tenderness, accessory muscle use, decreased breath sounds, prolonged expiratory Cardiovascular Exam: Present: regular rate, normal rhythm, normal heart sounds. Absent: systolic murmur, diastolic murmur, rubs, gallop, clicks GI/Abdominal exam: Present: soft, normal bowel sounds. Absent: distended, tenderness, guarding, rebound, rigid Extremities exam: Present: normal inspection, full ROM, normal capillary refill. Absent: tenderness, pedal edema, joint swelling, calf tenderness Back exam: Present: normal inspection Neurological exam: Present: alert, oriented X3, CN II-XII intact Psychiatric exam: Present: normal affect, normal mood Skin exam: Present: warm, dry, intact, normal color. Absent: rash Course Vital Signs 09/30/22 09/30/22 10/01/22 23:24 23:46 00:33 Temperature 98.9 F Pulse Rate 92 67 72 Respiratory 16 20 20 Rate Blood Pressure 151/74 163/89 163/89 O2 Sat by Pulse 98 99 98 Oximetry 10/01/22 10/01/22 02:00 02:51 Temperature Pulse Rate 85 62 Respiratory 16 16 Rate Blood Pressure 150/86 119/78 O2 Sat by Pulse 99 99 Oximetry - Reevaluation(s) Reevaluation #1: 10/01/22 00:41 Patient reevaluated and is actually pain-free. Patient had elevated hepatic enzymes. I did add on a lipase. I'm going to CAT scan the patient's abdomen and pelvis due to upper abdominal pain with chest pain. Reevaluation #2: 10/01/22 03:06 Visual reevaluated prior to discharge. No distress, no pain, discussed all findings and detail with the patient. 2 negative troponins. Chest Pain MDM - MDM Was pt. sent in by a medical professional or institution? @ No Did you speak to anyone other than the patient for history? @ -No Did you review nursing and triage notes? @ -Concur I did review the patient's old charts. It appears that she had the cardiac stenting done in 2020. @ -I did review the patient's previous hospital records to include the cardiac catheter and stenting done in 2020. Patient had a 95% occlusion of the LAD. Recent echocardiogram and stress tests are unavailable as they were done at the cardiology office Differential Diagnosis? @ Differential Chest Pain: Stable Angina, Unstable Angina, STEMI, NSTEMI Aortic Dissection, Pneumothorax, Musculoskeletal, Esophageal Spasm GERD, Cholecystitis, Pancreatitis, Zoster, this is not meant to be an all-inclusive list. EKG interpreted by me (3pts min.)? @ -Interpreted by me with nonspecific changes X-rays interpreted by me (1pt min.)? @ -One view chest x-ray interpreted by me shows no specific findings. No pneumothorax. No infiltrate. No effusion. Possible mild cardiomegaly. However, read as negative by radiology. CT interpreted by me (1pt min.)? @ -[none] U/S interpreted by me (1pt. min.)? @ -[none] What testing was considered but not performed? (CT, X-rays, U/S, labs)? Why? @ [CT, X-rays, U/S, labs? Why?] What meds were considered but not given? Why? @ -[none] Did you discuss the management of the patient with other professionals? @ -[professionals i.e. Dr, PA, CELL CLEANER, Lab, RT, Psych Nurse, Tool Mechanic, Fire Extinguisher Installer, Teacher, Cotton Opener, nurse case management? Give summary] Did you reconcile home meds? @ -[none] Was smoking cessation discussed for >3mins.? @ -[none] Was critical care preformed (if so, how long)? @ -[none] Were there social determinants of health that impacted care today? How? (Homelessness, low income, unemployed, alcoholism, drug addiction, transportation, low edu. Level, literacy, decrease access to med. care, assisted, rehab)? @ -[Homelessness, low income, unemployed, alcoholism, drug addiction, transportation, low edu. Level, literacy, decrease access to med. care, assisted, rehab?] Was there de-escalation of care discussed even if they declined? (Discuss DNR or withdrawal of care, Hospice)? @ -[Discuss DNR or withdrawal of care, Hospice?] What co-morbidities impacted this encounter? (DM, HTN, Smoking, COPD, CAD, Cancer, CVA, Hep., AIDS, mental health diagnosis, sleep apnea, morbid obesity)? @ -[DM, HTN, Smoking, COPD, CAD, Cancer, CVA, Hep., AIDS, mental health diagnosis, sleep apnea, morbid obesity?] Was patient admitted / discharged? @ -Discharged. Patient has have a white blood cell count of 14,000. Patient has had leukocytosis in the past. 9600 neutrophils. This may be inflammatory or stress reaction. Patient did have elevated hepatic enzymes with an AST of 393, ELT of 141, alkaline phosphatase 187. Bilirubin was normal. t est negative. Patient had 2 negative troponins here. I did discuss discharge versus admission with the patient. Patient states she feels well and wants to be discharged. Patient like to follow-up as an outpatient. We'll have patient follow-up with her regular physician, cardiology, and gastroenterology. Patient has been taking [id number] supplementation. I will have her stop the supplements. Patient admits to only occasional alcohol use, stating that she had 1 drink earlier tonight. I'm going to have her avoid acetaminophen and alcohol until follow-up. Patient pain free and in no distress at discharge.Patient was told to return to the ER for any signs or symptoms worsen. Told to return immediately if any other problems arise. All questions answered. Treatment plan discussed. Patient in agreement Every effort has been made to ensure accuracy of this dictation. However, due to the limitations of electronic medical records and dictation devices, errors in charting still occur. Undiagnosed new problem with uncertain prognosis? @ -[none] Drug Therapy requiring intensive monitoring for toxicity (Heparin, Nitro, Insulin, Cardizem)? @ -[none] Were any procedures done? @ -[none] Diagnosis/symptom? @ -Atypical chest pain, elevated liver enzymes/hepatitis, uncontrolled hypertension Acute, or Chronic, or Acute on Chronic? @ -Acute, recurrent Uncomplicated (without systemic symptoms) or Complicated (systemic symptoms)? @ -Multifactorial, uncomplicated Side effects of treatment? @ -[none] Exacerbation, Progression, or Severe Exacerbation] @ -[no] Poses a threat to life or bodily function? @ -Unlikely, patient safe for discharge and follow-up Supervising physician is Dr. Huang. The case was discussed in detail with ED attending physician. Presentation, findings, treatment plan discussed in detail. Disposition Clinical Impression: Chest pain, atypical, Hepatitis, Uncontrolled hypertension Disposition: HOME SELF-CARE Condition: Good Instructions (If sedation given, give patient instructions): Chest Pain (ED), Hypertension (ED) Additional Instructions: Follow-up with your information assurance regarding the chest pain. Follow-up with your regular physician and the etiologist regarding the liver enzymes which are elevated here today. Refrain from taking any [id number] supplements or medications. Refrain from acetaminophen for the time being. No alcohol. Follow-up with your regular physician as directed. Return to the ER immediately if any symptoms worsen, new symptoms arise, or any other problems develop. Is patient prescribed a controlled substance at d/c from ED?: No Referrals: Franky Tinoco MD [Primary Care Provider] - 1-2 days Lo Cardoso MD [STAFF PHYSICIAN] - 10/03/22 Hemanth Blackwood DO [STAFF PHYSICIAN] - 10/03/22 Time of Disposition: 03:06
[2022-09-30 23:59] LABS: Anisocytosis Slight; Basophils # (A) 0.1 k/uL (0-0.2); Basophils % (A) 1 %; Eosinophils # (A) 0.1 k/uL (0-0.7); Eosinophils % (A) 1 %; HCT 35.4 % (34.0-46.0); HGB 11.5 gm/dL (11.4-16.0); Hypochromasia Slight; Lymphocytes # (A) 3.3 k/uL (1.0-4.8); Lymphocytes % (A) 23 %; MCH 25.1 pg (25.0-35.0); MCHC 32.6 g/dL (31.0-37.0); MCV 76.9 fL (80.0-100.0); Mean Platelet Volume 7.8; Microcytosis Slight; Monocytes # (A) 0.7 k/uL (0-1.0); Monocytes % (A) 5 %; Neutrophils # (A) 9.6 k/uL (1.3-7.7); Neutrophils % (A) 68 %; Platelet Count 326 k/uL (150-450); RDW 16.7 % (11.5-15.5)
[2022-10-01 00:16] LABS: HCG,Qualitative Serum Not Detected
--- NOTE | 2022-10-01 00:16 | XR ---
EXAMINATION TYPE: XR chest 1V portable DATE OF EXAM: 10/01/2022 COMPARISON: 07/04/2021 HISTORY: Chest pain TECHNIQUE: Single view FINDINGS: Heart and mediastinum are normal. Lungs are clear. Diaphragm is normal. Bony thorax appears normal. IMPRESSION: Normal chest. No change.
[2022-10-01 00:18] LABS: ALT 141 U/L (4-34); AST 393 U/L (14-36); African American GFR (CKD) >90 (>60 ml/min/1.73 sqM); Albumin 4.2 g/dL (3.5-5.0); Alkaline Phosphatase 187 U/L (38-126); Anion Gap 7 mmol/L; Blood Urea Nitrogen 7 mg/dL (7-17); Calcium 9.4 mg/dL (8.4-10.2); Carbon Dioxide 26 mmol/L (22-30); Chloride 105 mmol/L (98-107); Glucose 126 mg/dL (74-99); Non-African American GFR(CKD) >90 (>60 ml/min/1.73 sqM); Sodium 138 mmol/L (137-145); Total Bilirubin 0.5 mg/dL (0.2-1.3)
[2022-10-01] MEDS ORDERED: SODIUM CHLORIDE 0.9% 1,000 ML IV ONE (00:41)
--- NOTE | 2022-10-01 01:56 | CT ---
EXAMINATION TYPE: CT abdomen pelvis w con DATE OF EXAM: 10/01/2022 COMPARISON: 04/07/2012 HISTORY: Upper abdominal pain/chest pain CT DLP: 1262.9 mGycm Automated exposure control for dose reduction was used. CONTRAST: Performed with IV Contrast, patient injected with 100ml mL of Isovue 300. Images obtained from the diaphragm to the floor the pelvis with the IV contrast. The lung bases are clear. No pleural effusion. Heart size is normal. No pericardial effusion. Liver s pleen and stomach pancreas appear intact. There are clips from cholecystectomy. The bile ducts are no t dilated. There is no adrenal mass. Kidneys show satisfactory contrast opacification. There is no hydronephrosi s. No retroperitoneal adenopathy. Appendix is posterior and appears normal. Bladder distends smoothly . No inguinal hernia. Uterus is anteverted. No pelvic mass. No free fluid in the pelvis. There is no mesenteric edema. No ascites or free air. No sign of a bowel obstruction. The lumbar vert ebra appear intact. No compression fracture. The bony pelvis is intact. The hip joints are intact. IMPRESSION: Normal appendix. No acute abnormality in the abdomen pelvis. There is clearing of the massive abdomin al ascites fluid compared to old exam.
[2022-10-01 02:44] LABS: Appearance,Urine Clear (Clear); Bilirubin,Urine Negative (Negative); Blood,Urine Negative (Negative); Color,Urine Yellow; Glucose,Urine (UA) Negative (Negative); Ketones,Urine Negative (Negative); Leukocyte Esterase,Urine Negative (Negative); Nitrite,Urine Negative (Negative); PH, Urine 7.5 (5.0-8.0); Protein,Urine Negative (Negative); Specific Gravity,Urine 1.007 (1.001-1.035); Urobilinogen,Urine <2.0 mg/dL (<2.0)
[2022-10-01 02:52] VITALS: PULSE 62
[2022-10-01 03:00] LABS: Amphetamine Screen,Urine Not Detected (NotDetected); Barbiturate Screen,Urine Not Detected (NotDetected); Benzodiazepines Screen,Urine Not Detected (NotDetected); Cocaine Screen,Urine Not Detected (NotDetected); Methadone Screen, Urine Not Detected (NotDetected); Opiate Screen,Urine Not Detected (NotDetected); Oxycodone Screen, Urine Not Detected (NotDetected); Phencyclidine Screen,Urine Not Detected (NotDetected); Tricyclic Antidepressant,Urine Not Detected (NotDetected); Urn Cannabinoid Scrn Detected (NotDetected)
[2022-10-01 03:17] VITALS: BP 134/68; RESP 20
== END 2022-10-01 03:16 | disposition home or self-care (01) ==
LOC: EC 23:22
DX: R07.89 Other chest pain (principal); K75.9 Inflammatory liver disease, unspecified; I10 Essential (primary) hypertension; R18.8 Other ascites; J45.909 Unspecified asthma, uncomplicated; I25.2 Old myocardial infarction; F41.9 Anxiety disorder, unspecified; F32.A Depression, unspecified; F17.210 Nicotine dependence, cigarettes, uncomplicated; I25.10 Atherosclerotic heart disease of native coronary artery without angina pectoris; Z79.899 Other long term (current) drug therapy; Z88.5 Allergy status to narcotic agent; Z88.0 Allergy status to penicillin
CPT/HCPCS: 36415 ×2; 93005; 85379; 83880; 80053; 83690; 83735; 84484 ×2; 85025; 81003; 84703; 80306; 71045; 74177; 99285; 96360; Q9967

== ENCOUNTER 2023-03-16 18:28 | Emergency (ER) | payer OTHER ==
[2023-03-16 18:47] VITALS: TEMP 98
[2023-03-16] MEDS ORDERED: SODIUM CHLORIDE 0.9% 1,000 ML IV STA (19:49)
--- NOTE | 2023-03-16 19:50 | ED ---
Weakness HPI - General Chief complaint: Recheck/Abnormal Lab/Rx Stated complaint: hypertension Time Seen by Provider: 03/16/23 18:52 Source: patient, RN notes reviewed, old records reviewed Mode of arrival: ambulatory Limitations: no limitations - History of Present Illness Initial comments: This is a 37-year-old female here today. Patient presents today for evaluation regarding weakness. Patient has had a lot of mental health issues as of late as she was just released from incarceration going through court case and recent struggle with addiction. Patient presents today for cough shortness of breath not feeling well. Patient was at another hospital yesterday and diagnosed with bronchitis discharged home. Patient states her symptoms have worsened overnight and she feels weak with no appetite MD Complaint: generalized weakness, focal weakness Location: generalized Severity: mild Severity scale (1-10): 2 Quality: aching Consistency: constant Improves with: none Worsens with: none, morning Context: recent illness Associated Symptoms: nausea/vomiting, shortness of breath - Related Data Home Medications Medication Instructions Recorded Confirmed Albuterol Sulfate [Proair Hfa] 2 puff INHALATION RT-QID PRN 06/26/21 03/16/23 Albuterol Sulfate [Ventolin HFA] 2 puff INHALATION RT-Q6H PRN 03/16/23 03/16/23 Amoxicillin 500 mg PO BID 03/16/23 03/16/23 Aspirin EC [Ecotrin Low Dose] 81 mg PO DAILY 03/16/23 03/16/23 Fluconazole [Diflucan] 150 mg PO ONCE PRN 03/16/23 03/16/23 Losartan Potassium [Cozaar] 25 mg PO DAILY 03/16/23 03/16/23 methylPREDNISolone Dose Pack See Taper PO DIRECTED 03/16/23 03/16/23 [Medrol Dose Pack] Previous Rx's Medication Instructions Recorded Atorvastatin [Lipitor] 80 mg PO DAILY #30 tab 06/29/21 Metoprolol Succinate (ER) [Toprol 12.5 mg PO DAILY 30 Days #15 tablet 06/29/21 XL] Nitroglycerin Sl Tabs [Nitrostat] 0.4 mg SUBLINGUAL Q5M PRN #30 tab 06/29/21 Azithromycin [Zithromax] 500 mg PO DAILY #5 tab 03/16/23 Cefdinir [Omnicef] 300 mg PO Q12HR #14 capsule 03/16/23 Allergies Allergy/AdvReac Type Severity Reaction Status Date / Time codeine AdvReac Mild Abdominal Verified 03/16/23 20:29 Pain amoxicillin AdvReac DOES NOT Verified 03/16/23 20:29 WORK Review of Systems ROS Statement: Those systems with pertinent positive or pertinent negative responses have been documented in the HPI. ROS Other: All systems not noted in ROS Statement are negative. Past Medical History Past Medical History: Asthma, Myocardial Infarction ([place]) Additional Past Medical History / Comment(s): heart murmur as a child History of Any Multi-Drug Resistant Organisms: None Reported Past Surgical History: Section, Cholecystectomy, Heart Catheterization With Stent Additional Past Surgical History / Comment(s): clamp on liver due to "liver bleed during gall bladder surgery" Past Anesthesia/Blood Transfusion Reactions: Previous Problems w/ Anesthesia Additional Past Anesthesia/Blood Transfusion Reaction / Comment(s): "freaked out when coming out and jumped off stretcher" Past Psychological History: Anxiety, Depression Smoking Status: Current every day smoker Past Alcohol Use History: None Reported Past Drug Use History: None Reported - Past Family History Father Family Medical History: No Reported History General Exam Limitations: no limitations General appearance: alert, in no apparent distress Head exam: Present: atraumatic, normocephalic, normal inspection Eye exam: Present: normal appearance, PERRL, EOMI. Absent: scleral icterus, conjunctival injection, periorbital swelling ENT exam: Present: normal exam, mucous membranes moist Neck exam: Present: normal inspection. Absent: tenderness, meningismus, lymphadenopathy Respiratory exam: Present: normal lung sounds bilaterally. Absent: respiratory distress, wheezes, rales, rhonchi, stridor Cardiovascular Exam: Present: regular rate, normal rhythm, normal heart sounds. Absent: systolic murmur, diastolic murmur, rubs, gallop, clicks GI/Abdominal exam: Present: soft, normal bowel sounds. Absent: distended, tenderness, guarding, rebound, rigid Extremities exam: Present: normal inspection, full ROM, normal capillary refill. Absent: tenderness, pedal edema, joint swelling, calf tenderness Back exam: Present: normal inspection Neurological exam: Present: alert, oriented X3, CN II-XII intact Psychiatric exam: Present: normal affect, normal mood Skin exam: Present: warm, dry, intact, normal color. Absent: rash Course Vital Signs 03/16/23 03/16/23 03/16/23 18:44 18:58 21:03 Temperature 98 F Pulse Rate 72 82 80 Pulse Rate [ [employer] ] Respiratory 18 20 18 Rate Blood Pressure 132/96 152/100 122/87 O2 Sat by Pulse 100 98 99 Oximetry 03/16/23 03/16/23 21:05 21:50 Temperature Pulse Rate 77 Pulse Rate [ 76 [employer] Officer ] Respiratory 18 Rate Blood Pressure 113/58 O2 Sat by Pulse 98 Oximetry - Reevaluation(s) Reevaluation #1: 03/16/23 21:55 Medical record is reviewed Reevaluation #2: 03/16/23 21:55 Patient symptoms are improved Reevaluation #3: 03/16/23 21:55 Patient informed of results and questions answered Reevaluation #4: 03/16/23 21:55 Was pt. sent in by a medical professional or institution? @ -no Did you speak to anyone other than the patient for history? @ -no Did you review nursing and triage notes? @ -agree Were old charts reviewed? @ -no Differential Diagnosis? @ -prior EKG interpreted by me (3pts min.)? @ -yes X-rays interpreted by me (1pt min.)? @ -yes CT interpreted by me (1pt min.)? @ -no U/S interpreted by me (1pt. min.)? @ -no What testing was considered but not performed? (CT, X-rays, U/S, labs)? Why? @ -no What meds were considered but not given? Why? @ -no Did you discuss the management of the patient with other professionals? @ -no Did you reconcile home meds? @ -no Was smoking cessation discussed for >3mins.? @ -no Was critical care preformed (if so, how long)? @ -no Were there social determinants of health that impacted care today? How? (Home lessness, low income, unemployed, alcoholism, drug addiction, transportation, low edu. Level, literacy, decrease access to med. care, senior care, rehab)? @ -no Was there de-escalation of care discussed even if they declined? (Discuss DNR or withdrawal of care, Hospice)? @ -no What co-morbidities impacted this encounter? (DM, HTN, Smoking, COPD, CAD, Cancer, CVA, Hep., AIDS, mental health diagnosis, sleep apnea, morbid obesity)? @ -none Was patient admitted / discharged? @ -37 female to the emergency department with increasing weakness lightheadedness and dizziness dehydration severe bronchitis recent diagnosis of sepsis, will change patient's antibiotics and can be discharged home Discharge Undiagnosed new problem with uncertain prognosis? @ -no Drug Therapy requiring intensive monitoring for toxicity (Heparin, Nitro, Insulin, Cardizem)? @ -no Were any procedures done? @ -no Diagnosis/symptom? @ -Acute, bronchitis with sepsis Acute, or Chronic, or Acute on Chronic? @ -Acute Uncomplicated (without systemic symptoms) or Complicated (systemic symptoms)? @ -uncomplicated Side effects of treatment? @ -no Exacerbation, Progression, or Severe Exacerbation] @ -no Poses a threat to life or bodily function? @ -yes with sepsis EKG Findings - EKG Comments: EKG Findings:: EKG shows 64 CO 123 QRS 93 QTc 404 - EKG Results: EKG: interpreted by KIM Medical Decision Making - Medical Decision Making 37 female to the emergency department for evaluation presents today for evaluation regards to weakness leukocytosis bronchitis, patient was placed on strong antibiotics and can be discharged home - Lab Data Result diagrams: 03/16/23 20:03 03/16/23 20:03 Lab Results 03/16/23 03/16/23 03/16/23 Range/Units 20:03 20:03 20:03 WBC 20.0 H (3.8-10.6) k/uL RBC 4.73 (3.80-5.40) m/uL Hgb 12.0 (11.4-16.0) gm/dL Hct 37.6 (34.0-46.0) % MCV 79.5 L (80.0-100.0) fL MCH 25.3 (25.0-35.0) pg MCHC 31.8 (31.0-37.0) g/dL RDW 16.4 H (11.5-15.5) % Plt Count 432 (150-450) k/uL MPV 7.9 Neutrophils % 78 % Lymphocytes % 16 % Monocytes % 5 % Eosinophils % 1 % Basophils % 0 % Neutrophils # 15.5 H (1.3-7.7) k/uL Lymphocytes # 3.1 (1.0-4.8) k/uL Monocytes # 1.0 (0-1.0) k/uL Eosinophils # 0.1 (0-0.7) k/uL Basophils # 0.0 (0-0.2) k/uL Hypochromasia Slight Anisocytosis Slight Microcytosis Slight Sodium 140 (137-145) mmol/L Potassium 3.8 (3.5-5.1) mmol/L Chloride 106 (98-107) mmol/L Carbon Dioxide 24 (22-30) mmol/L Anion Gap 10 mmol/L BUN 9 (7-17) mg/dL Creatinine 0.55 (0.52-1.04) mg/dL Est GFR (CKD-EPI)AfAm >90 (>60 ml/min/1.73 sqM) Est GFR (CKD-EPI)NonAf >90 (>60 ml/min/1.73 sqM) Glucose 101 H (74-99) mg/dL Calcium 9.6 (8.4-10.2) mg/dL Phosphorus 4.0 (2.5-4.5) mg/dL Magnesium 1.8 (1.6-2.3) mg/dL Total Bilirubin 0.3 (0.2-1.3) mg/dL AST 26 (14-36) U/L ALT 32 (4-34) U/L Alkaline Phosphatase 118 (38-126) U/L Troponin I <0.012 (0.000-0.034) ng/mL C-Reactive Protein <0.5 (<1.0) mg/dL Total Protein 7.5 (6.3-8.2) g/dL Albumin 4.5 (3.5-5.0) g/dL Urine Color Urine Appearance (Clear) Urine pH (5.0-8.0) Ur Specific [place] (1.001-1.035) Urine Protein (Negative) Urine Glucose (UA) (Negative) Urine Ketones (Negative) Urine Blood (Negative) Urine Nitrite (Negative) Urine Bilirubin (Negative) Urine Urobilinogen (<2.0) mg/dL Ur Leukocyte Esterase (Negative) Influenza Type A (PCR) (Not Detectd) Influenza Type B (PCR) (Not Detectd) RSV (PCR) (Not Detectd) SARS-CoV-2 (PCR) (Not Detectd) 03/16/23 03/16/23 Range/Units 20:06 21:12 WBC (3.8-10.6) k/uL RBC (3.80-5.40) m/uL Hgb (11.4-16.0) gm/dL Hct (34.0-46.0) % MCV (80.0-100.0) fL MCH (25.0-35.0) pg MCHC (31.0-37.0) g/dL RDW (11.5-15.5) % Plt Count (150-450) k/uL MPV Neutrophils % % Lymphocytes % % Monocytes % % Eosinophils % % Basophils % % Neutrophils # (1.3-7.7) k/uL Lymphocytes # (1.0-4.8) k/uL Monocytes # (0-1.0) k/uL Eosinophils # (0-0.7) k/uL Basophils # (0-0.2) k/uL Hypochromasia Anisocytosis Microcytosis Sodium (137-145) mmol/L Potassium (3.5-5.1) mmol/L Chloride (98-107) mmol/L Carbon Dioxide (22-30) mmol/L Anion Gap mmol/L BUN (7-17) mg/dL Creatinine (0.52-1.04) mg/dL Est GFR (CKD-EPI)AfAm (>60 ml/min/1.73 sqM) Est GFR (CKD-EPI)NonAf (>60 ml/min/1.73 sqM) Glucose (74-99) mg/dL Calcium (8.4-10.2) mg/dL Phosphorus (2.5-4.5) mg/dL Magnesium (1.6-2.3) mg/dL Total Bilirubin (0.2-1.3) mg/dL AST (14-36) U/L ALT (4-34) U/L Alkaline Phosphatase (38-126) U/L Troponin I (0.000-0.034) ng/mL C-Reactive Protein (<1.0) mg/dL Total Protein (6.3-8.2) g/dL Albumin (3.5-5.0) g/dL Urine Color Light Yellow Urine Appearance Clear (Clear) Urine pH 6.0 (5.0-8.0) Ur Specific [place] 1.008 (1.001-1.035) Urine Protein Negative (Negative) Urine Glucose (UA) Negative (Negative) Urine Ketones Negative (Negative) Urine Blood Negative (Negative) Urine Nitrite Negative (Negative) Urine Bilirubin Negative (Negative) Urine Urobilinogen <2.0 (<2.0) mg/dL Ur Leukocyte Esterase Negative (Negative) Influenza Type A (PCR) Not Detected (Not Detectd) Influenza Type B (PCR) Not Detected (Not Detectd) RSV (PCR) Not Detected (Not Detectd) SARS-CoV-2 (PCR) Not Detected (Not Detectd) - EKG Data -: EKG Interpreted by Me - Radiology Data Radiology results: report reviewed (Chest x-rays negative for acute disease), image reviewed Disposition Clinical Impression: Weakness, Acute bronchitis, Dehydration, Leukocytosis Disposition: HOME SELF-CARE Condition: Good Instructions (If sedation given, give patient instructions): Acute Bronchitis (ED), Weakness (ED) Prescriptions: Cefdinir [Omnicef] 300 mg PO Q12HR #14 capsule Azithromycin [Zithromax] 500 mg PO DAILY #5 tab Is patient prescribed a controlled substance at d/c from ED?: No Referrals: Franky Tinoco MD [Primary Care Provider] - 1-2 days Time of Disposition: 21:50
[2023-03-16 20:13] LABS: Anisocytosis Slight; Basophils % (A) 0 %; Eosinophils # (A) 0.1 k/uL (0-0.7); Eosinophils % (A) 1 %; HCT 37.6 % (34.0-46.0); Hypochromasia Slight; Lymphocytes # (A) 3.1 k/uL (1.0-4.8); Lymphocytes % (A) 16 %; MCH 25.3 pg (25.0-35.0); MCHC 31.8 g/dL (31.0-37.0); MCV 79.5 fL (80.0-100.0); Mean Platelet Volume 7.9; Microcytosis Slight; Monocytes % (A) 5 %; Neutrophils # (A) 15.5 k/uL (1.3-7.7); Neutrophils % (A) 78 %; Platelet Count 432 k/uL (150-450); RBC 4.73 m/uL (3.80-5.40); RDW 16.4 % (11.5-15.5)
[2023-03-16 20:26] LABS: ALT 32 U/L (4-34); AST 26 U/L (14-36); African American GFR (CKD) >90 (>60 ml/min/1.73 sqM); Albumin 4.5 g/dL (3.5-5.0); Alkaline Phosphatase 118 U/L (38-126); Anion Gap 10 mmol/L; Blood Urea Nitrogen 9 mg/dL (7-17); Calcium 9.6 mg/dL (8.4-10.2); Carbon Dioxide 24 mmol/L (22-30); Chloride 106 mmol/L (98-107); Glucose 101 mg/dL (74-99); Magnesium 1.8 mg/dL (1.6-2.3); Non-African American GFR(CKD) >90 (>60 ml/min/1.73 sqM); Potassium 3.8 mmol/L (3.5-5.1); Sodium 140 mmol/L (137-145); Total Bilirubin 0.3 mg/dL (0.2-1.3); Total Protein 7.5 g/dL (6.3-8.2)
[2023-03-16 21:04] VITALS: RESP 18
--- NOTE | 2023-03-16 21:12 | XR ---
EXAMINATION TYPE: XR chest 1V portable DATE OF EXAM: 03/16/2023 8:58 PM COMPARISON: Chest radiographs from 09/30/2022 TECHNIQUE: XR chest 1V portable Frontal view of the chest. CLINICAL INDICATION:Female, 37 years old with history of cough; FINDINGS: Lungs/Pleura: There is no evidence of pleural effusion, focal consolidation, or pneumothorax. Pulmonary vascularity: Unremarkable. Heart/mediastinum: Cardiomediastinal silhouette is unremarkable. Musculoskeletal: No acute osseous pathology. IMPRESSION: No acute cardiopulmonary disease/process.
[2023-03-16 21:27] LABS: Appearance,Urine Clear (Clear); Bilirubin,Urine Negative (Negative); Blood,Urine Negative (Negative); Color,Urine Light Yellow; Glucose,Urine (UA) Negative (Negative); Ketones,Urine Negative (Negative); Leukocyte Esterase,Urine Negative (Negative); Nitrite,Urine Negative (Negative); Protein,Urine Negative (Negative); Specific Gravity,Urine 1.008 (1.001-1.035); Urobilinogen,Urine <2.0 mg/dL (<2.0)
[2023-03-16] MEDS ORDERED: AZITHROMYCIN 500 MG TAB PO STA (21:40)
[2023-03-16] MEDS ORDERED: cefTRIAXone IN SWFI 1,000 MG/10 ML SYRINGE IVP STA (21:40)
[2023-03-16 21:51] VITALS: BP 113/58; PULSE 77
[2023-03-16 21:53] LABS: C Reactive Protein <0.5 mg/dL (<1.0)
== END 2023-03-16 21:59 | disposition home or self-care (01) ==
LOC: EC 18:28
DX: R53.1 Weakness (principal); D72.829 Elevated white blood cell count, unspecified; J20.9 Acute bronchitis, unspecified; E86.0 Dehydration; I25.2 Old myocardial infarction; J45.909 Unspecified asthma, uncomplicated; I10 Essential (primary) hypertension; F41.9 Anxiety disorder, unspecified; F32.A Depression, unspecified; F17.200 Nicotine dependence, unspecified, uncomplicated; Z79.82 Long term (current) use of aspirin; Z79.899 Other long term (current) drug therapy; Z88.0 Allergy status to penicillin; Z88.5 Allergy status to narcotic agent; Z90.49 Acquired absence of other specified parts of digestive tract; Z20.822 Contact with and (suspected) exposure to COVID-19
CPT/HCPCS: 36415; 93005; 80053; 83735; 84100; 84484; 85025; 86140; 81003; 87636; 71045; 99284; 96374; 96361; J0696